=== PATIENT | female | born 1990 | race Two or more races ===

== ENCOUNTER 2025-06-02 19:50 | Inpatient (IN) | payer MEDICAID, OTHER ==
[~2025-06-02] VITALS: Ht 162.6 cm; Wt 60.7 kg
[2025-06-02] MEDS ORDERED: DEXTROSE 50% SYRINGE 100 ML IV ONE (19:54)
[2025-06-02] MEDS ORDERED: ETOMIDATE (2MG/ML) 20ML VIAL IV ONE (19:56)
[2025-06-02] MEDS ORDERED: ROCURONIUM 10MG/ML 10ML VIAL IV ONE (19:56)
[2025-06-02] MEDS: DEXTROSE (50%) 50ML SYRG IV ONE (19:57)
[2025-06-02] MEDS: ETOMIDATE (2MG/ML) 20ML VIAL IV ONE (19:58)
[2025-06-02] MEDS: ROCURONIUM 10MG/ML 10ML VIAL IV ONE (19:59)
--- NOTE | 2025-06-02 20:09 | ED.PDOC ---
History of Present Illness HPI Comments 34 y/o F is BIBA from private residence for c/c AMS. Per EMS report, family called after finding patient in unconsciousness and unresponsive altered state, this evening. Last seen normal by father after arriving home at around 0100, this morning. 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 On scene, patient was found with a respiration rate of 4, tachycardic heart rate, and pin point pupils, initially. Administration of 4mg Narcan IN was performed, with positive response. EMS notes successful blood glucose reading of 21, with D10 administration being initiated, minutes prior to hospital arrival. No further pertinent history or acute associated symptoms reported. 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: Denies all CONSTRUCTION PROJECT COORDINATOR Hx Family History Family History: Unknown Social History Smoker: Non-Smoker Alcohol: Occasionally Drugs: Other (Wax) Lives In: Home All Other Systems: Reviewed and Negative (Comprehensive systems review obtained and negative except for what is stated in the HPI.) Physical Exam General Appearance: Normal, Other (patient unresponsive ) HEENT: Other (Pinpoint pupils) Neck: Normal Inspection Respiratory: Respiratory Distress Cardiovascular: Tachycardia, Other (regular rhythm ) Breast Exam: Deferred Gastrointestinal: NOT DONE Genitalia: Deferred Pelvic: Deferred Rectal: Deferred Extremities: No calf tenderness, Normal capillary refill, Normal inspection, No pedal edema Musculoskeletal : Apperance: Normal Neurologic: Other (patient unresponsive ) Cerebellar Function: NOT DONE Reflexes: NOT DONE Skin: Dry, Normal Color, Warm Lymphatic: No Adenopathy Was a procedure done? 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 Indication: Hypotension, Inability to obtain IV Room prepared for procedure: Yes Nuclear Engineering Technician performed hand hygien: Yes Maximal sterile barrier precau: Mask/Eye shield, Sterile gown, Cap, Sterlie gloves, Large sterlie drape Skin Preparation: Chlorhexidine gluconate, Providine iodine Skin preparation completely dr: Yes Insertion site: Right Central line catheter type: Rov-uwepgkyc-ywe dialysis Number of lumens: 3 Central line exchanged over a: No Antiseptic ointment applied to: No Post Assessment: Chest X-Ray, Proper placement Informed consent obtained: No Risks/benefits/alt described: No Intubation Indication: Respiratory Insufficiency, Altered Mental Status Prep: No Preoxygenation Pretreated with: Nothing Medicated with: Other (100mg Rocuronium bromide; 40mg etomidate) Intubation Approach: Orotracheal (7.5) Intubation size: cm (23 at the lip) Informed consent obtained: No Risks/benefits/alt described: No Differential Dx Considerations may include: substance abuse/dependency, toxic metabolic encephalopathy, opioid overdose, respiratory distress, respiratory failure, among others X-Ray, Labs, Meds, VS Vital Signs Date Time Temp Pulse Resp B/P (MAP) Pulse Ox O2 Delivery O2 Flow Rate FiO2 06/03/25 04:30 99/42 06/03/25 04:04 128 26 104/51 (68) 97 80 06/03/25 03:45 95/40 06/03/25 03:40 97/36 06/03/25 03:30 95/40 06/03/25 03:25 89/38 06/03/25 03:20 90/36 06/03/25 03:15 98/32 06/03/25 03:10 88/38 06/03/25 03:05 81/36 06/03/25 03:00 99.0 125 24 88/46 (60) 97 99.0 06/03/25 03:00 88/46 06/03/25 02:55 67/47 06/03/25 02:50 84/46 06/03/25 02:45 86/39 06/03/25 02:40 84/40 06/03/25 02:40 84/40 06/03/25 02:36 128 26 82/32 (49) 97 80 06/03/25 02:34 84/40 06/03/25 02:15 99.1 129 28 82/31 (48) 96 99.1 06/03/25 02:15 82/31 06/03/25 02:10 82/31 06/03/25 02:00 91/36 06/03/25 02:00 91/36 06/03/25 02:00 99.3 130 28 91/36 (54) 97 99.3 06/03/25 01:45 99.3 130 27 81/35 (50) 96 99.3 06/03/25 01:30 99.5 132 25 82/33 (49) 95 99.5 06/03/25 01:15 99.9 132 25 82/33 (49) 95 99.9 06/03/25 01:00 100.2 137 24 81/36 (51) 94 100.2 06/03/25 01:00 81/36 06/03/25 01:00 81/36 06/03/25 00:45 77/35 06/03/25 00:45 99.9 133 24 77/35 (49) 94 99.9 06/03/25 00:30 99.5 134 24 86/37 (53) 94 99.5 06/03/25 00:30 87/38 06/03/25 00:15 99.0 134 24 86/37 (53) 94 99.0 06/03/25 00:00 87/30 06/03/25 00:00 87/30 06/03/25 00:00 98.4 133 24 87/30 (49) 98 98.4 06/02/25 23:58 128 24 111/30 (57) 100 80 06/02/25 23:45 97.3 129 24 102/34 (56) 99 97.3 06/02/25 23:30 97.3 127 24 84/29 (47) 99 97.3 06/02/25 23:15 96.8 131 24 95/37 (56) 99 96.8 06/02/25 23:00 105/43 06/02/25 23:00 105/43 06/02/25 23:00 95.7 126 24 105/43 (63) 99 95.7 06/02/25 22:45 95.7 120 24 99/29 (52) 99 95.7 06/02/25 22:37 117 20 92/36 (54) 99 100 06/02/25 22:34 117 24 92/36 99 100 06/02/25 22:30 95.3 117 24 91/30 (50) 99 95.3 06/02/25 22:30 84/29 06/02/25 22:15 131 18 Mechanical Ventilator+ 100 100 06/02/25 22:15 94.8 117 24 92/36 (54) 99 94.8 06/02/25 22:00 94.5 115 22 98/2 (34) 98 94.5 06/02/25 22:00 98/20 06/02/25 22:00 98/20 06/02/25 21:55 87/29 06/02/25 21:50 96/27 06/02/25 21:45 94.3 115 24 88/30 (49) 98 94.3 06/02/25 21:45 88/30 06/02/25 21:40 88/27 06/02/25 21:35 97/41 06/02/25 21:30 94.1 115 24 96/30 (52) 99 94.1 06/02/25 21:05 94.1 112 18 96/30 (52) 98 94.1 06/02/25 20:50 94.3 114 18 94/36 (55) 93 94.3 06/02/25 20:40 82/53 06/02/25 20:35 94.6 114 17 92/58 (69) 100 94.6 06/02/25 20:20 115 17 92/58 (69) 95 06/02/25 20:20 94.5 117 4 75/39 (51) 94.5 06/02/25 20:15 87/40 06/02/25 20:12 115 16 87/40 (56) 98 100 06/02/25 20:10 114 16 Mechanical Ventilator+ 100 100 06/02/25 20:10 94.5 114 16 75/39 (51) 94.5 06/02/25 19:59 0/0 Lab Test 06/03/25 04:39 06/03/25 02:52 06/03/25 01:45 06/03/25 01:07 Range/Units POC Glucose 106 112 H 184 H 70-106 mg/dl Blood Gas Specimen Type Venous Blood Gas Sample Site Vbg - n/a Blood Gas Patient Temperature 37.0 Arterial Blood Date Drawn [id number] Dougie Test N/a Venous Blood pH 7.208 L 7.320-7.430 Venous Blood pCO2 at Patient Temp 47.6 38.0-54.0 mmHg Venous Blood pO2 at Patient Temp 48.9 H 23.0-48.0 mmHg Venous Blood HCO3 18.5 L 22.0-29.0 mmol/L Venous Blood Base Excess -9.4 L -2.0-3.0 mmol/L Blood Gas Set Respiration Rate 24.0 Blood Gas Modality Vent - ac FiO2 % 80.0 Blood Gas Tidal Volume 400.0 Blood Gas PEEP or CPAP 5.0 Test 06/03/25 00:30 06/02/25 22:39 06/02/25 22:37 06/02/25 22:22 Range/Units Creatine Kinase > 67326 H 34-145 U/L Troponin I High Sensitivity 4005 *H 2967 *H </=34 ng/L White Blood Count 14.2 H 4.4-10.8 10^3/uL Red Blood Count 3.72 L 4.0-5.20 10^6/uL Hemoglobin 11.3 L 12.2-16.2 g/dL Hematocrit 36.6 36.0-46.0 % Mean Corpuscular Volume 98.4 # 80.0-100.0 fL Mean Corpuscular Hemoglobin 30.5 28.0-32.0 pg Mean Corpuscular Hemoglobin Concent 31.0 L 32.0-36.0 g/dL Red Cell Distribution Width 19.7 H 11.8-14.3 % Platelet Count 296 140-450 10^3/uL Mean Platelet Volume 7.9 6.9-10.8 fL Neutrophils (%) (Auto) 91.8 H 37.0-80.0 % Lymphocytes (%) (Auto) 6.5 L 10.0-50.0 % Monocytes (%) (Auto) 1.4 0.0-12.0 % Eosinophils (%) (Auto) 0.0 0.0-7.0 % Basophils (%) (Auto) 0.3 0.0-2.0 % Neutrophils # (Auto) 13.1 H 1.6-8.6 10 ^3/uL Lymphocytes # (Auto) 0.9 0.4-5.4 10 ^3/uL Monocytes # (Auto) 0.2 0-1.3 10 ^3/uL Eosinophils # (Auto) 0 0-0.8 10 ^3/uL Basophils # (Auto) 0 0-0.2 10 ^3/uL Nucleated Red Blood Cells 0.1 % Sodium Level 139 136-145 mmol/L Potassium Level 7.6 *H 3.5-5.1 mmol/L Chloride Level 106 98-107 mmol/L Carbon Dioxide Level 12 L 20-31 mmol/L Anion Gap 21 H 5-15 Blood Urea Nitrogen 19 9-23 mg/dL Creatinine 2.87 H 0.550-1.02 mg/dL Glomerular Filtration Rate Calc 21 >90 mL/min BUN/Creatinine Ratio 6.6 L 10.0-20.0 Serum Glucose 207 H 74-106 mg/dL Calcium Level 6.0 *L 8.7-10.4 mg/dL Phosphorus Level 21.1 H 2.4-5.1 mg/dL Magnesium Level 2.9 H 1.6-2.6 mg/dL Total Bilirubin 0.6 0.2-1.0 mg/dL Aspartate Amino Transferase (AST) > 6000 H 13-40 U/L Alanine Aminotransferase (ALT) 4005 H 7-40 U/L Alkaline Phosphatase 110 46-116 U/L Total Protein 6.6 5.7-8.2 g/dL Albumin 3.9 3.2-4.8 g/dL Plasma/Serum Blood Alcohol 3.0 <10 mg/dL Lactic Acid Level 9.1 *H 0.4-2.0 mmol/L Test 06/02/25 22:20 06/02/25 20:23 06/02/25 20:12 Range/Units Blood Gas Specimen Type Venous Blood Gas Sample Site Vbg - n/a Blood Gas Patient Temperature 37.0 Arterial Blood Date Drawn [id number] Dougie Test N/a Venous Blood pH 6.893 *L 7.320-7.430 Venous Blood pCO2 at Patient Temp 42.4 38.0-54.0 mmHg Venous Blood pO2 at Patient Temp 78.0 H 23.0-48.0 mmHg Venous Blood HCO3 8.0 L 22.0-29.0 mmol/L Venous Blood Base Excess -25.0 L -2.0-3.0 mmol/L Blood Gas Set Respiration Rate 24.0 Blood Gas Modality Vent - ac FiO2 % 100.0 Blood Gas Tidal Volume 400.0 Blood Gas PEEP or CPAP 5.0 Blood Gas Critical Value Read Back Yes Blood Gas Notified Whom Md dick rios Blood Gas Notified Time [id number] Blood Gas Notified By Rt jarvis zabala Urine Color Colorless Yellow Urine Clarity Clear Clear Urine pH 6.0 5.0-9.0 Urine Specific [place] 1.002 1.001-1.035 Urine Protein Negative Negative Urine Ketones Negative Negative Urine Blood Negative Negative /uL Urine Nitrite Negative Negative Urine Bilirubin Negative Negative Urine Urobilinogen Normal Negative mg/dL Urine Leukocyte Esterase Negative Negative /uL Urine RBC 1 0 - 4 /hpf Urine Microscopic WBC 0-5 /HPF Urine Squamous Epithelial Cells Few <5 /hpf Urine Bacteria Few H None Seen /hpf Urine Glucose Normal Normal mg/dL Urine Test Negative Negative Urine Opiates Screen Neg NEGATIVE Urine Fentanyl Screen Pos NEGATIVE Urine Barbiturates Screen Neg NEGATIVE Urine Phencyclidine Screen Neg NEGATIVE Urine Amphetamines Screen Neg NEGATIVE Urine Benzodiazepines Screen Neg NEGATIVE Urine Cocaine Screen Neg NEGATIVE Urine Cannabinoids Screen Pos NEGATIVE White Blood Count 16.3 H 4.4-10.8 10^3/uL Red Blood Count 3.61 L 4.0-5.20 10^6/uL Hemoglobin 10.6 L 12.2-16.2 g/dL Hematocrit 37.3 36.0-46.0 % Mean Corpuscular Volume 103.4 H 80.0-100.0 fL Mean Corpuscular Hemoglobin 29.3 28.0-32.0 pg Mean Corpuscular Hemoglobin Concent 28.4 L 32.0-36.0 g/dL Red Cell Distribution Width 20.3 H 11.8-14.3 % Platelet Count 324 140-450 10^3/uL Mean Platelet Volume 8.2 6.9-10.8 fL Neutrophils (%) (Auto) 89.3 H 37.0-80.0 % Lymphocytes (%) (Auto) 8.6 L 10.0-50.0 % Monocytes (%) (Auto) 1.9 0.0-12.0 % Eosinophils (%) (Auto) 0.1 0.0-7.0 % Basophils (%) (Auto) 0.1 0.0-2.0 % Neutrophils # (Auto) 14.6 H 1.6-8.6 10 ^3/uL Lymphocytes # (Auto) 1.4 0.4-5.4 10 ^3/uL Monocytes # (Auto) 0.3 0-1.3 10 ^3/uL Eosinophils # (Auto) 0 0-0.8 10 ^3/uL Basophils # (Auto) 0 0-0.2 10 ^3/uL Nucleated Red Blood Cells 0.2 % Sodium Level 135 L 136-145 mmol/L Potassium Level 7.5 *H 3.5-5.1 mmol/L Chloride Level 98 98-107 mmol/L Carbon Dioxide Level < 10 *L 20-31 mmol/L Anion Gap 27.89295 H 5-15 Blood Urea Nitrogen 18 9-23 mg/dL Creatinine 2.92 H 0.550-1.02 mg/dL Glomerular Filtration Rate Calc 21 >90 mL/min BUN/Creatinine Ratio 6.2 L 10.0-20.0 Serum Glucose 428 *H 74-106 mg/dL Lactic Acid Level 11.0 *H 0.4-2.0 mmol/L Calcium Level 6.2 L 8.7-10.4 mg/dL Total Bilirubin 0.5 0.2-1.0 mg/dL Aspartate Amino Transferase (AST) > 6000 H 13-40 U/L Alanine Aminotransferase (ALT) 3570 H 7-40 U/L Alkaline Phosphatase 105 46-116 U/L Troponin I High Sensitivity 2381 *H </=34 ng/L B-Type Natriuretic Peptide 95.14 0-100 pg/mL Total Protein 6.4 5.7-8.2 g/dL Albumin 3.9 3.2-4.8 g/dL Lipase 29 12-53 U/L Current Medications Medications (Trade) Dose Ordered Sig/[facility] Route Start Time Stop Time Status Last Admin Sodium Chloride 1,000 ml @ 1,000 mls/hr Q1H ONCE IV 06/02/25 20:15 06/02/25 21:14 DC 06/02/25 20:15 Ceftriaxone Sodium 50 ml @ 100 mls/hr ONCE ONCE IV 06/02/25 20:15 06/02/25 20:44 DC 06/02/25 20:58 Rocuronium Dieterich 100 mg ONCE ONCE IV 06/02/25 21:00 06/02/25 21:01 DC 06/02/25 19:59 Etomidate 20 mg ONCE ONCE IV 06/02/25 21:00 06/02/25 21:01 [place] 06/02/25 19:58 Midazolam HCl 50 ml @ 1 mls/hr Q24H IV 06/02/25 21:00 06/02/25 21:35 Dextrose 100 ml ONCE ONCE IV 06/02/25 21:00 06/02/25 21:03 DC 06/02/25 19:57 Norepinephrine Bitartrate 250 ml @ 3.75 mls/hr Q24H IV 06/02/25 21:15 06/02/25 20:15 Sodium Chloride 1,000 ml @ 1,000 mls/hr Q1H ONCE IV 06/02/25 21:30 06/02/25 22:29 DC 06/02/25 21:30 Calcium Gluconate/ Sodium Chloride 50 ml @ 100 mls/hr Q30M IV 06/02/25 22:30 06/02/25 23:29 DC 06/02/25 23:00 Sodium Bicarbonate 100 ml ONCE ONCE IV 06/02/25 22:30 06/02/25 22:36 DC 06/02/25 22:30 Sodium Chloride 1,000 ml @ 1,000 mls/hr Q1H ONCE IV 06/02/25 22:30 06/02/25 23:29 DC 06/02/25 22:30 Vancomycin HCl 200 ml @ 200 mls/hr ONCE ONCE IV 06/02/25 22:30 06/02/25 23:29 DC 06/02/25 22:30 Calcium Gluconate/ Sodium Chloride 50 ml @ 100 mls/hr Q30M IV 06/02/25 23:45 06/03/25 00:44 DC 06/03/25 00:15 Sodium Bicarbonate 100 ml ONCE ONCE IV 06/02/25 23:45 06/02/25 23:46 DC 06/02/25 23:45 Sodium Chloride 1,000 ml @ 1,000 mls/hr Q1H ONCE IV 06/02/25 23:45 06/03/25 00:44 DC 06/02/25 23:45 Sodium Chloride 1,000 ml @ 500 mls/hr Q2H IV 06/03/25 00:00 06/03/25 03:59 DC 06/03/25 02:00 Sodium Chloride 1,000 ml @ 250 mls/hr Q4H IV 06/03/25 04:00 06/03/25 05:59 06/03/25 04:16 Insulin Human (Reg)/Sodium Chloride 100 ml @ 0.5 mls/hr Q24H IV 06/03/25 00:00 06/03/25 01:20 Diagnostic Test (Pha) (Accu-Chek Comfort Curve T) 1 strip Q90MIN 06/03/25 00:00 06/03/25 04:40 Insulin Glargine (Lantus) 15 units ONCE ONCE SC 06/03/25 00:00 06/03/25 00:01 DC 06/03/25 00:00 Vasopressin 20 units/Sodium Chloride 100 ml @ 9 mls/hr Q11H7M IV 06/03/25 02:10 06/03/25 02:10 Dobutamine HCl/ Dextrose 250 ml @ 15.6 mls/hr Q16H2M ONCE IV 06/03/25 02:30 06/03/25 18:31 06/03/25 02:34 Sodium Chloride 1,000 ml @ 1,000 mls/hr Q1H ONCE IV 06/03/25 02:10 06/03/25 04:16 DC 06/03/25 02:10 [place] [address] Ph: [phone] DIAGNOSTIC IMAGING Diagnostic Imaging Report : [id number] Signed PATIENT: GERARDO SON ACCT: [id number] UNIT: [id number] : 1990 LOC: ER ROOM / BED: / AGE / SEX: 34 / F ADM STATUS: REG ER SERVICE 13 ORDERING PHYSICIAN: GIOVANNI RIOS MD PROCEDURE(s): HWOCT - HEAD WITHOUT CONTRAST REASON: found down ORDER NUMBER(s): [id number], ACCESSION NUMBER(s): [id number] EXAM: CT HEAD WITHOUT CONTRAST INDICATION: found down TECHNIQUE: CT of the head without intravenous contrast. Radiation Dose : 1. Head: CT Dose: CTDI volume is 47.5 mGy. Dose-length product is 83.31 mGy*cm The dose indicators for CT are the volume Computed Tomography (CT) Dose Index (CTDIvol) and the Dose Length Product (DLP), and are measured in units of mGy and mGy-cm, respectively. These indicators are not patient dose, but values generated from the CT scanner acquisition factors. The report includes radiation exposure data for exposures received during this examination. COMPARISON: None FINDINGS: There is no evidence of acute intracranial hemorrhage, extra-axial collection, mass effect, midline shift, herniation or hydrocephalus. The ventricles, sulci and cisterns are age appropriate. The rod-white differentiation is intact. The visualized paranasal sinuses and mastoid air cells are clear. The surrounding soft tissues and osseous structures are unremarkable. Nasogastric tube. IMPRESSION: 1. No acute intracranial abnormality. Radiation optimization: All CT scans at this facility use at least one of these dose optimization techniques: automated exposure control mA and/or kV adjustment per patient size (includes targeted exams where dose is matched to clinical indication) or iterative reconstruction. ATED BY: TAPAN BIRMINGHAM MD DICTATED DATE/TIME: 06/02/252149 SIGNED BY: TAPAN BIRMINGHAM MD SIGNED DATE/TIME: 06/02/252149 CC: [place] [address] Ph: [phone] DIAGNOSTIC IMAGING Diagnostic Imaging Report : [id number] Signed PATIENT: GERARDO SON ACCT: [id number] UNIT: [id number] : 1990 LOC: ER ROOM / BED: / AGE / SEX: 34 / F ADM STATUS: REG ER SERVICE 13 ORDERING PHYSICIAN: GIOVANNI RIOS MD PROCEDURE(s): CXRP - CHEST PORTABLE REASON: found down, intubated ORDER NUMBER(s): [id number], ACCESSION NUMBER(s): [id number] CHEST RADIOGRAPH Indication: found down, intubated Technique: Single frontal view of the chest was obtained COMPARISON: None FINDINGS: Lines and Tubes: Endotracheal tube terminates 3.1 cm above the ramu. Enteric tube courses past the GE junction with the tip and side port overlying the plane of the stomach. Lungs: Possible small/ nodular opacity in the left mid lung. Lungs are otherwise grossly clear. Pleura: No effusion. No pneumothorax. Cardiomediastinal contours: Unremarkable Bones: Unremarkable Other: The partially visualized gastric bubble is distended with gas. IMPRESSION: Endotracheal and enteric tubes are in satisfactory position. Question a small/nodular opacity in the left midlung. Lungs are otherwise grossly clear. No pneumothorax. Partially visualized gaseous distention of the stomach. ATED BY: WAQAS LYMAN DO DICTATED DATE/TIME: 06/02/252123 SIGNED BY: WAQAS LYMAN DO SIGNED DATE/TIME: 06/02/252123 CC: X-Ray, Labs, Meds, VS Comment Time of 1ST Reevaluation: 20:20 Reevaluation 1ST: Unchanged Patient Education/Counseling: Treatment Family Education/Counseling: No Family Present Additional Information Previous visits reviewed: April 27, 2012 and May 11, 2019 encounters for back pain and laceration of right wrist, respectively The following tests were ordered, and results were reviewed by me: CXR, head CT w.o contrast, EKG, troponin, drug screen, UA, urine test, lipase, lactic acid w/reflex, CMP, CBC, BNP, urine bacterial culture, blood culture, respiratory culture Additional Information was gathered from interviewing the following independent historians: EMS I reviewed and agreed with the following test results read by other providers: CXR, head CT w.o contrast I discussed treatment and results with medical personnel and: patient SEPSIS Sepsis Screen Physician Orders Ventilator Orders (06/02/25 20:07) Respiratory Culture W/ Gs (06/02/25 20:07) Abg W/ Co-Ox (06/02/25 21:00) Chest Portable (06/02/25 20:14) Head Without Contrast (06/02/25 20:14) Electrocardigram (06/02/25 20:14) Blood Culture (06/02/25 20:14) Urine Bacterial Culture (06/02/25 20:14) Insert Alves Catheter QSHIFT (06/02/25 20:14) Ventilator Orders (06/02/25 20:51) Midazolam Drip 50 Mg/50ml (Versed Drip 5 (06/02/25 21:00) Fentanyl Drip 2500mcg/250mlns (06/02/25 21:00) Rass Sedation Scale Q1HR (06/02/25 21:00) Communication Order (06/02/25 21:02) Norepinephrine 8 Mg/250ml Kit (Levophed) (06/02/25 21:15) Ventilator Orders (06/02/25 21:11) Communication Order (06/02/25 20:35) Venous Blood Gas (06/02/25 22:30) Insulin Drip Protocol (06/02/25 ) Sodium Chloride 0.9% (06/03/25 04:00) Sodium Chloride 0.9% (06/03/25 06:00) Insulin Drip 100 Unit/100ml (Myxredlin 1 (06/03/25 00:00) Dextrose 50% Syringe (06/03/25 00:00) Glucose Blood (Accu-Chek Comfort Curve T (06/03/25 00:00) Basic Metabolic Panel (06/03/25 05:52) Basic Metabolic Panel (06/03/25 11:52) Basic Metabolic Panel (06/03/25 17:52) Neurological Assessment (06/02/25 23:52) Vs/Hemodynamics .PER UNIT PROTOCOL (06/02/25 23:52) Insulin Lantus (Glargine) (Lantus) (06/03/25 10:00) Check Blood Glucose Q1HR (06/02/25 23:52) Sodium Chl 0.9% (So... W/Vasopressin (06/03/25 02:10) Venous Blood Gas (06/03/25 01:45) Ventilator Orders (06/03/25 02:26) Dobutamine 1000mcg/Ml (Dobutrex) (06/03/25 02:30) Cvp Monitoring (06/03/25 ) Magnesium (06/03/25 04:55) Phosphorus (06/03/25 04:55) Basic Metabolic Panel (06/03/25 04:55) Complete Blood Count (06/03/25 04:55) Lactic Acid W/ Reflex Order (06/03/25 04:55) Vital Signs Date Time Temp Pulse Resp B/P (MAP) Pulse Ox O2 Delivery O2 Flow Rate FiO2 06/03/25 04:30 99/42 06/03/25 04:04 128 26 104/51 (68) 97 80 06/03/25 03:45 95/40 06/03/25 03:40 97/36 06/03/25 03:30 95/40 06/03/25 03:25 89/38 06/03/25 03:20 90/36 06/03/25 03:15 98/32 06/03/25 03:10 88/38 06/03/25 03:05 81/36 06/03/25 03:00 99.0 125 24 88/46 (60) 97 99.0 06/03/25 03:00 88/46 06/03/25 02:55 67/47 06/03/25 02:50 84/46 06/03/25 02:45 86/39 06/03/25 02:40 84/40 06/03/25 02:40 84/40 06/03/25 02:36 128 26 82/32 (49) 97 80 06/03/25 02:34 84/40 06/03/25 02:15 99.1 129 28 82/31 (48) 96 99.1 06/03/25 02:15 82/31 06/03/25 02:10 82/31 06/03/25 02:00 91/36 06/03/25 02:00 91/36 06/03/25 02:00 99.3 130 28 91/36 (54) 97 99.3 06/03/25 01:45 99.3 130 27 81/35 (50) 96 99.3 06/03/25 01:30 99.5 132 25 82/33 (49) 95 99.5 06/03/25 01:15 99.9 132 25 82/33 (49) 95 99.9 06/03/25 01:00 100.2 137 24 81/36 (51) 94 100.2 06/03/25 01:00 81/36 06/03/25 01:00 81/36 06/03/25 00:45 77/35 06/03/25 00:45 99.9 133 24 77/35 (49) 94 99.9 06/03/25 00:30 99.5 134 24 86/37 (53) 94 99.5 06/03/25 00:30 87/38 06/03/25 00:15 99.0 134 24 86/37 (53) 94 99.0 06/03/25 00:00 87/30 06/03/25 00:00 87/30 06/03/25 00:00 98.4 133 24 87/30 (49) 98 98.4 7/20/25 23:58 128 24 111/30 (57) 100 80 06/02/25 23:45 97.3 129 24 102/34 (56) 99 97.3 06/02/25 23:30 97.3 127 24 84/29 (47) 99 97.3 06/02/25 23:15 96.8 131 24 95/37 (56) 99 96.8 06/02/25 23:00 105/43 06/02/25 23:00 105/43 06/02/25 23:00 95.7 126 24 105/43 (63) 99 95.7 06/02/25 22:45 95.7 120 24 99/29 (52) 99 95.7 06/02/25 22:37 117 20 92/36 (54) 99 100 06/02/25 22:34 117 24 92/36 99 100 06/02/25 22:30 95.3 117 24 91/30 (50) 99 95.3 06/02/25 22:30 84/29 06/02/25 22:15 131 18 Mechanical Ventilator+ 100 100 06/02/25 22:15 94.8 117 24 92/36 (54) 99 94.8 06/02/25 22:00 94.5 115 22 98/2 (34) 98 94.5 06/02/25 22:00 98/20 06/02/25 22:00 98/20 06/02/25 21:55 87/29 06/02/25 21:50 96/27 06/02/25 21:45 94.3 115 24 88/30 (49) 98 94.3 06/02/25 21:45 88/30 06/02/25 21:40 88/27 06/02/25 21:35 97/41 06/02/25 21:30 94.1 115 24 96/30 (52) 99 94.1 06/02/25 21:05 94.1 112 18 96/30 (52) 98 94.1 06/02/25 20:50 94.3 114 18 94/36 (55) 93 94.3 06/02/25 20:40 82/53 72025 20:35 94.6 114 17 92/58 (69) 100 94.6 06/02/25 20:20 115 17 92/58 (69) 95 7/20/ 20:20 94.5 117 4 75/39 (51) 94.5 06/02/25 20:15 87/40 06/02/25 20:12 115 16 87/40 (56) 98 100 06/02/25 20:10 114 16 Mechanical Ventilator+ 100 100 06/02/25 20:10 94.5 114 16 75/39 (51) 94.5 06/02/25 19:59 0/0 Laboratory Tests Test 06/02/25 20:12 06/02/25 22:22 06/02/25 22:39 Lactic Acid Level 11.0 mmol/L (0.4-2.0) *H 9.1 mmol/L (0.4-2.0) *H White Blood Count 16.3 10^3/uL (4.4-10.8) H 14.2 10^3/uL (4.4-10.8) H Medications Medications Dose Ordered Sig/Renny Route Start Time Stop Time Status Last Admin Dose Admin Calcium Gluconate/ Sodium Chloride 50 ml @ 100 mls/hr Q30M IV 06/02/25 22:30 06/02/25 23:29 DC 06/02/25 23:00 Calcium Gluconate/ Sodium Chloride 50 ml @ 100 mls/hr Q30M IV 06/02/25 23:45 06/03/25 00:44 DC 06/03/25 00:15 Ceftriaxone Sodium 50 ml @ 100 mls/hr ONCE ONCE IV 06/02/25 20:15 06/02/25 20:44 DC 06/02/25 20:58 Dextrose 100 ml ONCE ONCE IV 06/02/25 21:00 06/02/25 21:03 DC 06/02/25 19:57 Diagnostic Test (Pha) 1 strip Q90MIN 06/03/25 00:00 06/03/25 04:40 Dobutamine HCl/ Dextrose 250 ml @ 15.6 mls/hr Q16H2M ONCE IV 06/03/25 02:30 06/03/25 18:31 06/03/25 02:34 Etomidate 20 mg ONCE ONCE IV 06/02/25 21:00 06/02/25 21:01 DC 06/02/25 19:58 Insulin Glargine 15 units ONCE ONCE SC 06/03/25 00:00 06/03/25 00:01 DC 06/03/25 00:00 Insulin Human (Reg)/Sodium Chloride 100 ml @ 0.5 mls/hr Q24H IV 06/03/25 00:00 06/03/25 01:20 Midazolam HCl 50 ml @ 1 mls/hr Q24H IV 06/02/25 21:00 06/02/25 21:35 Norepinephrine Bitartrate 250 ml @ 3.75 mls/hr Q24H IV 06/02/25 21:15 06/02/25 20:15 Rocuronium Dieterich 100 mg ONCE ONCE IV 06/02/25 21:00 06/02/25 21:01 DC 06/02/25 19:59 Sodium Bicarbonate 100 ml ONCE ONCE IV 06/02/25 22:30 06/02/25 22:36 DC 06/02/25 22:30 Sodium Bicarbonate 100 ml ONCE ONCE IV 06/02/25 23:45 06/02/25 23:46 DC 06/02/25 23:45 Sodium Chloride 1,000 ml @ 250 mls/hr Q4H IV 06/03/25 04:00 06/03/25 05:59 06/03/25 04:16 Sodium Chloride 1,000 ml @ 500 mls/hr Q2H IV 06/03/25 00:00 06/03/25 03:59 DC 06/03/25 02:00 Sodium Chloride 1,000 ml @ 1,000 mls/hr Q1H ONCE IV 06/02/25 20:15 06/02/25 21:14 DC 06/02/25 20:15 Sodium Chloride 1,000 ml @ 1,000 mls/hr Q1H ONCE IV 06/02/25 21:30 06/02/25 22:29 DC 06/02/25 21:30 Sodium Chloride 1,000 ml @ 1,000 mls/hr Q1H ONCE IV 06/02/25 22:30 06/02/25 23:29 DC 06/02/25 22:30 Sodium Chloride 1,000 ml @ 1,000 mls/hr Q1H ONCE IV 06/02/25 23:45 06/03/25 00:44 DC 06/02/25 23:45 Sodium Chloride 1,000 ml @ 1,000 mls/hr Q1H ONCE IV 06/03/25 02:10 06/03/25 04:16 DC 06/03/25 02:10 Vancomycin HCl 200 ml @ 200 mls/hr ONCE ONCE IV 06/02/25 22:30 06/02/25 23:29 DC 06/02/25 22:30 Vasopressin 20 units/Sodium Chloride 100 ml @ 9 mls/hr Q11H7M IV 06/03/25 02:10 06/03/25 02:10 Departure 1 Departure Time of Disposition: 04:58 ([place] Authorization to Admit to [facility] [id number] presented unresponsive as discussion with the family patient is post CPR. Patient likely had an we will we are going to failure. Patient was intubated central line paste home with we will pressors. Patient lives shock liver renal failure. We will admit patient to ICU) Impression: Primary Impression: MOSF (multiple organ systems failure) Additional Impressions: Acute metabolic encephalopathy Hyperkalemia Metabolic acidosis Fentanyl poisoning Qualified Codes: T40.411A - Poisoning by fentanyl or fentanyl analogs, accidental (unintentional), initial encounter Disposition: ADMITTED INPATIENT Admit to: ICU Condition: Critical e-Prescriptions No Active Prescriptions or Reported Meds Critical Care Note Critical Care Time?: Yes Critical care comment: Acute multi organ system failure Authorized and Performed by: Giovanni Rios MD Total critical care time: Approximately 241 minutes Due to a high probability of clinically significant, life threatening deterioration, the patient required my highest level of preparedness to intervene emergently and I personally spent this critical care time directly and personally managing the patient. This critical care time included obtaining a history; examining the patient; pulse oximetry; ordering and review of studies; arranging urgent treatment with development of a management plan; evaluation of patient's response to treatment; frequent reassessment; and, discussions with other providers. This critical care time was performed to assess and manage the high probability of imminent, life-threatening deterioration that could result in multi-organ failure. It was exclusive of separately billable procedures and treating other patients and teaching time. Please see my other sections and the rest of the note for further information on patient assessment and treatment. Stability Stability form required: No Heart Score Heart Score: Heart Score Response (Comments) Value History N/A 0 EKG N/A 0 Age N/A 0 Risk Factors N/A 0 Troponin N/A 0 Total 0 I personally scribed for GIOVANNI RIOS MD ([email or web address]) on 06/02/25 at 20:09. Electronically submitted by Talon Velarde ([email or web address]). I personally scribed for [facility]NI [facility] MD ([facility] on 06/02/25 at 20:17. Electronically submitted by Talon Velarde ([email or web address]). I personally scribed for GIOVANNI RIOS MD ([email or web address]) on 06/02/25 at 22:32. Electronically submitted by Talon Velarde ([email or web address]). GIOVANNI RIOS MD Jun 02, 2025 20:09
[2025-06-02 20:10] VITALS: PULSE 114; RESP 16
[2025-06-02] MEDS: NOREPINEPHRINE 8 MG/250ML KIT 250 ML IV ONE (20:12)
[2025-06-02] MEDS: NOREPINEPHRINE 8 MG/250ML KIT 250 ML IV SCH (20:15)
[2025-06-02] MEDS: ONDANSETRON HCL 4 MG/2 ML VIAL IV ONE (20:15)
[2025-06-02] MEDS: SODIUM CHLORIDE 0.9% 1,000 ML IV ONE ×4 (20:15→23:45)
[2025-06-02 20:34] LABS: Hemoglobin 10.6 g/dL (12.2-16.2)
[2025-06-02] MEDS: MIDAZOLAM DRIP 50 mg/50mL 50 ML IV ONE (20:34)
[2025-06-02 20:35] LABS: Hematocrit 37.3 % (36.0-46.0); Mean Corpuscular Hemoglobin 29.3 pg (28.0-32.0); Mean Corpuscular Volume 103.4 fL (80.0-100.0); Nucleated Red Blood Cells % 0.2 %
[2025-06-02 20:37] LABS: Urine Protein, UAD Negative (Negative)
[2025-06-02] MEDS: fentaNYL Drip 2500mCg/250mlNS 250 ML IV ONE (20:37)
[2025-06-02 20:50] LABS: Amphetamine Screen, Urine Neg (NEGATIVE); Barbiturate Scree,Urine Neg (NEGATIVE); Benzodiazephine Screen, Urine Neg (NEGATIVE); Cannabinoid Screen, Urine Pos (NEGATIVE); Cocaine Screen, Urine Neg (NEGATIVE); Opiate Scree,Urine Neg (NEGATIVE); Phencyclidine Screen, Urine Neg (NEGATIVE)
[2025-06-02 20:53] LABS: Lactic Acid w/Reflex 11.0 mmol/L (0.4-2.0)
[2025-06-02] MEDS: cefTRIAXone 1GM/50ML D5W 50 ML IV ONE (20:58)
[2025-06-02] MEDS: fentaNYL Drip 2500mCg/250mlNS 250 ML IV SCH (21:00)
[2025-06-02 21:04] LABS: Alanine Aminotransferase 3570 U/L (7-40)
[2025-06-02 21:05] LABS: Potassium 7.5 mmol/L (3.5-5.1); Sodium 135 mmol/L (136-145)
[2025-06-02 21:06] LABS: Albumin 3.9 g/dL (3.2-4.8); Alkaline Phosphatase 105 U/L (46-116); Anion Gap 27.00001 (5-15); BUN/Creatinine Ratio 6.2 (10.0-20.0); Bilirubin, Total 0.5 mg/dL (0.2-1.0); Blood Urea Nitrogen 18 mg/dL (9-23); Calcium 6.2 mg/dL (8.7-10.4); Carbon Dioxide < 10 mmol/L (20-31); Chloride 98 mmol/L (98-107); Glucose 428 mg/dL (74-106); Lipase 29 U/L (12-53); Total Protein 6.4 g/dL (5.7-8.2)
--- NOTE | 2025-06-02 21:27 | DVH ---
CHEST RADIOGRAPH Indication: found down, intubated Technique: Single frontal view of the chest was obtained COMPARISON: None FINDINGS: Lines and Tubes: Endotracheal tube terminates 3.1 cm above the ramu. Enteric tube courses past the GE junction with the tip and side port overlying the plane of the stomach. Lungs: Possible small/ nodular opacity in the left mid lung. Lungs are otherwise grossly clear. Pleura: No effusion. No pneumothorax. Cardiomediastinal contours: Unremarkable Bones: Unremarkable Other: The partially visualized gastric bubble is distended with gas. IMPRESSION: Endotracheal and enteric tubes are in satisfactory position. Question a small/nodular opacity in the left midlung. Lungs are otherwise grossly clear. No pneumoth orax. Partially visualized gaseous distention of the stomach.
[2025-06-02] MEDS: MIDAZOLAM DRIP 50 mg/50mL 50 ML IV SCH (21:35)
--- NOTE | 2025-06-02 21:53 | DVH ---
EXAM: CT HEAD WITHOUT CONTRAST INDICATION: found down TECHNIQUE: CT of the head without intravenous contrast. Radiation Dose : 1. Head: CT Dose: CTDI volume is 47.5 mGy. Dose-length product is 83.31 mGy*cm The dose indicators for CT are the volume Computed Tomography (CT) Dose Index (CTDIvol) and the Dose Length Product (DLP), and are measured in units of mGy and mGy-cm, respectively. These indicators are not patient dose, but values generated from the CT scanner acquisition factors. The report includes radiation exposure data for exposures received during this examination. COMPARISON: None FINDINGS: There is no evidence of acute intracranial hemorrhage, extra-axial collection, mass effect, midline s hift, herniation or hydrocephalus. The ventricles, sulci and cisterns are age appropriate. The rod-white differentiation is intact. The visualized paranasal sinuses and mastoid air cells are clear. The surrounding soft tissues and osseous structures are unremarkable. Nasogastric tube. IMPRESSION: 1. No acute intracranial abnormality. Radiation optimization: All CT scans at this facility use at least one of these dose optimization avelino hniques: automated exposure control mA and/or kV adjustment per patient size (includes targeted exam s where dose is matched to clinical indication) or iterative reconstruction.
[2025-06-02 22:15] VITALS: PULSE 131; RESP 18
[2025-06-02] MEDS: SODIUM BICARB 8.4% 50Meq/50ml SYR Vial IV ONE ×2 (22:30→23:45)
[2025-06-02] MEDS: CALCIUM GLUC 1,000mg/50ml-NS 50 ML IV SCH ×2 (22:30→23:45)
[2025-06-02] MEDS: VANCOMYCIN 1GM/200ML PM 200 ML IV ONE (22:30)
[2025-06-02 22:34] VITALS: BP 92/36; PULSE 117; RESP 24; O2SAT 99
[2025-06-02 22:37] VITALS: BP 92/36; PULSE 117; RESP 20; O2SAT 99
[2025-06-02 22:53] LABS: Mean Corpuscular Volume 98.4 fL (80.0-100.0)
[2025-06-02 22:55] LABS: Hematocrit 36.6 % (36.0-46.0); Hemoglobin 11.3 g/dL (12.2-16.2); Mean Corpuscular Hemoglobin 30.5 pg (28.0-32.0); Nucleated Red Blood Cells % 0.1 %
[2025-06-02 23:02] LABS: Albumin 3.9 g/dL (3.2-4.8); Alkaline Phosphatase 110 U/L (46-116); Anion Gap 21 (5-15); BUN/Creatinine Ratio 6.6 (10.0-20.0); Blood Urea Nitrogen 19 mg/dL (9-23); Chloride 106 mmol/L (98-107); Sodium 139 mmol/L (136-145); Total Protein 6.6 g/dL (5.7-8.2)
[2025-06-02 23:03] LABS: Bilirubin, Total 0.6 mg/dL (0.2-1.0)
[2025-06-02 23:36] LABS: Carbon Dioxide 12 mmol/L (20-31); Potassium 7.6 mmol/L (3.5-5.1)
[2025-06-02 23:37] LABS: Alanine Aminotransferase 4005 U/L (7-40); Calcium 6.0 mg/dL (8.7-10.4); Glucose 207 mg/dL (74-106); Magnesium 2.9 mg/dL (1.6-2.6)
[2025-06-02] MEDS: InsuLIN REG 1unit/0.01ml Soln (100units/ml) IV ONE (23:45)
[2025-06-02 23:58] VITALS: BP 111/30; PULSE 128; RESP 24; O2SAT 100
[2025-06-03] VITALS (92 sets, daily range): BP systolic 80–134; BP diastolic 32–77; PULSE 83–130; RESP 14–26; TEMP 97.3–99.3; O2SAT 91–100
[2025-06-03] MEDS ORDERED: DEXTROSE (50%) 50ML SYRG IV PRN
[2025-06-03] MEDS: INSULIN LANTUS (GLARGINE) 1 /0.01ml (100units/ml) SC ONE
[2025-06-03] MEDS: INSULIN DRIP 100 UNIT/100ML 100 ML IV SCH (01:20)
[2025-06-03] MEDS: VASOPRESSIN 20 UNIT/ML ONE (02:05)
[2025-06-03] MEDS: VASOPRESSIN 20 UNITS in SODIUM CHL 0.9% 99 ML IV SCH (02:10)
[2025-06-03] MEDS: SODIUM CHLORIDE 0.9% 1,000 ML IV ONE ×2 (02:10→05:00)
[2025-06-03] MEDS: DOBUTamine 1000MCG/ML 250 ML IV ONE (02:34)
[2025-06-03] MEDS: SODIUM CHLORIDE 0.9% 1,000 ML IV SCH ×3 (04:16→07:30)
[2025-06-03] MEDS ORDERED: ACETAMINOPHEN 325 MG TAB PO PRN (05:00)
[2025-06-03] MEDS ORDERED: MORPHINE SULFATE INJ 2 MG/ml SYRG IV PRN (05:00)
[2025-06-03] MEDS ORDERED: ONDANSETRON HCL 4 MG/2 ML VIAL IV PRN (05:00)
[2025-06-03] MEDS ORDERED: VANCOMYCIN PER PHARMACY 0 MG IV SCH (05:00)
[2025-06-03] MEDS ORDERED: NITROGLYCERIN 0.4 MG SL TAB SL PRN (05:00)
--- NOTE | 2025-06-03 05:07 | DVHHP2 ---
History of Present Illness Reason for Visit: Altered mental status History of Present Illness 34-year-old female presents for evaluation of altered mental status. Patient was found unconscious and unresponsive by family member. Last seen normal is on when patient was last seen in normal state. Patient was given Narcan in the field with positive response momentarily. Patient was emergently intubated in the field for airway protection. Past Medical History Unknown Family History Unknown Lives: with Family Review of Systems Review of Systems Review of systems can not be completed, patient is sedated and intubated. Allergies: Coded Allergies: NO KNOWN ALLERGIES (Unverified , 04/27/12) Medications Current Medications Medications Dose Ordered Sig/Renny Route Start Time Stop Time Status Last Admin Dose Admin Midazolam HCl 50 ml @ 1 mls/hr Q24H IV 06/02/25 21:00 06/02/25 21:35 1 MLS/HR Fentanyl Citrate 250 ml @ 2.5 mls/hr Q24H IV 06/02/25 21:00 Norepinephrine Bitartrate 250 ml @ 3.75 mls/hr Q24H IV 06/02/25 21:15 06/02/25 20:15 11.25 MLS/HR Sodium Chloride 1,000 ml @ 250 mls/hr Q4H IV 06/03/25 04:00 06/03/25 05:59 06/03/25 04:16 250 MLS/HR Sodium Chloride 1,000 ml @ 150 mls/hr Q6H40M IV 06/03/25 06:00 Insulin Human (Reg)/Sodium Chloride 100 ml @ 0.5 mls/hr Q24H IV 06/03/25 00:00 06/03/25 01:20 2 MLS/HR Dextrose 50 ml UD PRN IV 06/03/25 00:00 Diagnostic Test (Pha) 1 strip Q90MIN 06/03/25 00:00 06/03/25 04:40 1 STRIP Insulin Glargine 15 units DAILY SC 06/03/25 10:00 Vasopressin 20 units/Sodium Chloride 100 ml @ 9 mls/hr Q11H7M IV 06/03/25 02:10 06/03/25 02:10 3 MLS/HR Exam Vital Signs Vital Signs Date Time Temp Pulse Resp B/P (MAP) Pulse Ox O2 Delivery O2 Flow Rate FiO2 06/03/25 04:30 99/42 06/03/25 04:04 128 26 97 80 06/03/25 03:00 99.0 99.0 06/02/25 22:15 Mechanical Ventilator+ Exam Gen: 34-year-old female in moderate distress Skin: Warm, dry, normal color and texture, no rash. HEENT: Normocephalic atraumatic, mucous membranes moist and pink. Neck: Cervical and supraclavicular nodes normal without enlargement, trachea is midline, thyroid gland is normal without masses. Pulmonary: Intubated, diminished breath sounds bilaterally Cardiac: Sinus tachycardia Abdomen: Soft, nontender, nondistended, bowel sounds present all 4 quadrants, no guarding, no rigidity, no organomegaly. Extremities: No cyanosis, clubbing, no edema Neuro: Sedated Labs/Xrays ORDERING PHYSICIAN: GIOVANNI RIOS MD PROCEDURE(s): CXRP - CHEST PORTABLE REASON: found down, intubated ORDER NUMBER(s): [id number], ACCESSION NUMBER(s): [id number] CHEST RADIOGRAPH Indication: found down, intubated Technique: Single frontal view of the chest was obtained COMPARISON: None FINDINGS: Lines and Tubes: Endotracheal tube terminates 3.1 cm above the ramu. Enteric tube courses past the GE junction with the tip and side port overlying the plane of the stomach. Lungs: Possible small/ nodular opacity in the left mid lung. Lungs are otherwise grossly clear. Pleura: No effusion. No pneumothorax. Cardiomediastinal contours: Unremarkable Bones: Unremarkable Other: The partially visualized gastric bubble is distended with gas. IMPRESSION: Endotracheal and enteric tubes are in satisfactory position. Question a small/nodular opacity in the left midlung. Lungs are otherwise grossly clear. No pneumothorax. Partially visualized gaseous distention of the stomach. RING PHYSICIAN: GIOVANNI RIOS MD PROCEDURE(s): HWOCT - HEAD WITHOUT CONTRAST REASON: found down ORDER NUMBER(s): [id number], ACCESSION NUMBER(s): [id number] EXAM: CT HEAD WITHOUT CONTRAST INDICATION: found down TECHNIQUE: CT of the head without intravenous contrast. Radiation Dose : 1. Head: CT Dose: CTDI volume is 47.5 mGy. Dose-length product is 83.31 mGy*cm The dose indicators for CT are the volume Computed Tomography (CT) Dose Index (CTDIvol) and the Dose Length Product (DLP), and are measured in units of mGy and mGy-cm, respectively. These indicators are not patient dose, but values generated from the CT scanner acquisition factors. The report includes radiation exposure data for exposures received during this examination. COMPARISON: None FINDINGS: There is no evidence of acute intracranial hemorrhage, extra-axial collection, mass effect, midline shift, herniation or hydrocephalus. The ventricles, sulci and cisterns are age appropriate. The rod-white differentiation is intact. The visualized paranasal sinuses and mastoid air cells are clear. The surrounding soft tissues and osseous structures are unremarkable. Nasogastric tube. IMPRESSION: 1. No acute intracranial abnormality. Radiation optimization: All CT scans at this facility use at least one of these dose optimization techniques: automated exposure control mA and/or kV adjustment per patient size (includes targeted exams where dose is matched to clinical indication) or iterative reconstruction. Labs Test 06/03/25 04:39 06/03/25 01:45 06/03/25 00:30 06/02/25 22:39 Range/Units POC Glucose 106 70-106 mg/dl Blood Gas Specimen Type Venous Blood Gas Sample Site Vbg - n/a Blood Gas Patient Temperature 37.0 Arterial Blood Date Drawn [id number] Dougie Test N/a Venous Blood pH 7.208 L 7.320-7.430 Venous Blood pCO2 at Patient Temp 47.6 38.0-54.0 mmHg Venous Blood pO2 at Patient Temp 48.9 H 23.0-48.0 mmHg Venous Blood HCO3 18.5 L 22.0-29.0 mmol/L Venous Blood Base Excess -9.4 L -2.0-3.0 mmol/L Blood Gas Set Respiration Rate 24.0 Blood Gas Modality Vent - ac FiO2 % 80.0 Blood Gas Tidal Volume 400.0 Blood Gas PEEP or CPAP 5.0 Creatine Kinase > 39944 H 34-145 U/L Troponin I High Sensitivity 4005 *H </=34 ng/L White Blood Count 14.2 H 4.4-10.8 10^3/uL Red Blood Count 3.72 L 4.0-5.20 10^6/uL Hemoglobin 11.3 L 12.2-16.2 g/dL Hematocrit 36.6 36.0-46.0 % Mean Corpuscular Volume 98.4 # 80.0-100.0 fL Mean Corpuscular Hemoglobin 30.5 28.0-32.0 pg Mean Corpuscular Hemoglobin Concent 31.0 L 32.0-36.0 g/dL Red Cell Distribution Width 19.7 H 11.8-14.3 % Platelet Count 296 140-450 10^3/uL Mean Platelet Volume 7.9 6.9-10.8 fL Neutrophils (%) (Auto) 91.8 H 37.0-80.0 % Lymphocytes (%) (Auto) 6.5 L 10.0-50.0 % Monocytes (%) (Auto) 1.4 0.0-12.0 % Eosinophils (%) (Auto) 0.0 0.0-7.0 % Basophils (%) (Auto) 0.3 0.0-2.0 % Neutrophils # (Auto) 13.1 H 1.6-8.6 10 ^3/uL Lymphocytes # (Auto) 0.9 0.4-5.4 10 ^3/uL Monocytes # (Auto) 0.2 0-1.3 10 ^3/uL Eosinophils # (Auto) 0 0-0.8 10 ^3/uL Basophils # (Auto) 0 0-0.2 10 ^3/uL Nucleated Red Blood Cells 0.1 % Test 06/02/25 22:37 06/02/25 22:22 06/02/25 22:20 06/02/25 20:23 Range/Units Sodium Level 139 136-145 mmol/L Potassium Level 7.6 *H 3.5-5.1 mmol/L Chloride Level 106 98-107 mmol/L Carbon Dioxide Level 12 L 20-31 mmol/L Anion Gap 21 H 5-15 Blood Urea Nitrogen 19 9-23 mg/dL Creatinine 2.87 H 0.550-1.02 mg/dL Glomerular Filtration Rate Calc 21 >90 mL/min BUN/Creatinine Ratio 6.6 L 10.0-20.0 Serum Glucose 207 H 74-106 mg/dL Calcium Level 6.0 *L 8.7-10.4 mg/dL Phosphorus Level 21.1 H 2.4-5.1 mg/dL Magnesium Level 2.9 H 1.6-2.6 mg/dL Total Bilirubin 0.6 0.2-1.0 mg/dL Aspartate Amino Transferase (AST) > 6000 H 13-40 U/L Alanine Aminotransferase (ALT) 4005 H 7-40 U/L Alkaline Phosphatase 110 46-116 U/L Total Protein 6.6 5.7-8.2 g/dL Albumin 3.9 3.2-4.8 g/dL Plasma/Serum Blood Alcohol 3.0 <10 mg/dL Lactic Acid Level 9.1 *H 0.4-2.0 mmol/L Blood Gas Critical Value Read Back Yes Blood Gas Notified Whom Md dick rios Blood Gas Notified Time Blood Gas Notified By Rt jarvis zabala Urine Color Colorless Yellow Urine Clarity Clear Clear Urine pH 6.0 5.0-9.0 Urine Specific [place] 1.002 1.001-1.035 Urine Protein Negative Negative Urine Ketones Negative Negative Urine Blood Negative Negative /uL Urine Nitrite Negative Negative Urine Bilirubin Negative Negative Urine Urobilinogen Normal Negative mg/dL Urine Leukocyte Esterase Negative Negative /uL Urine RBC 1 0 - 4 /hpf Urine Microscopic WBC 0-5 /HPF Urine Squamous Epithelial Cells Few <5 /hpf Urine Bacteria Few H None Seen /hpf Urine Glucose Normal Normal mg/dL Urine Test Negative Negative Urine Opiates Screen Neg NEGATIVE Urine Fentanyl Screen Pos NEGATIVE Urine Barbiturates Screen Neg NEGATIVE Urine Phencyclidine Screen Neg NEGATIVE Urine Amphetamines Screen Neg NEGATIVE Urine Benzodiazepines Screen Neg NEGATIVE Urine Cocaine Screen Neg NEGATIVE Urine Cannabinoids Screen Pos NEGATIVE Test 06/02/25 20:12 Range/Units B-Type Natriuretic Peptide 95.14 0-100 pg/mL Lipase 29 12-53 U/L SEPSIS Sepsis Screen Date sepsis recognized/suspect: Jun 02, 2025 Time Sepsis recognized/suspect: 2214 Recent Procedure: No On Antibiotic Therapy: No Respiratory Rate >20: No Heart Rate >90: Yes Temp<36 C (96.8 F) or >38.3 C: Yes SBP <90 or MAP <65 mmHG: Yes New Acute Mental Status Change: No Is the patient on CPAP, BIPAP,: No Physician Orders Communication Order (06/02/25 21:02) Norepinephrine 8 Mg/250ml Kit (Levophed) (06/02/25 21:15) Ventilator Orders (06/02/25 21:11) Communication Order (06/02/25 20:35) Venous Blood Gas (06/02/25 22:30) Insulin Drip Protocol (06/02/25 ) Sodium Chloride 0.9% (06/03/25 04:00) Sodium Chloride 0.9% (06/03/25 06:00) Insulin Drip 100 Unit/100ml (Myxredlin 1 (06/03/25 00:00) Dextrose 50% Syringe (06/03/25 00:00) Glucose Blood (Accu-Chek Comfort Curve T (06/03/25 00:00) Basic Metabolic Panel (06/03/25 05:52) Basic Metabolic Panel (06/03/25 11:52) Basic Metabolic Panel (06/03/25 17:52) Neurological Assessment (06/02/25 23:52) Vs/Hemodynamics .PER UNIT PROTOCOL (06/02/25 23:52) Insulin Lantus (Glargine) (Lantus) (06/03/25 10:00) Check Blood Glucose Q1HR (06/02/25 23:52) Sodium Chl 0.9% (So... W/Vasopressin (06/03/25 02:10) Venous Blood Gas (06/03/25 01:45) Ventilator Orders (06/03/25 02:26) Dobutamine 1000mcg/Ml (Dobutrex) (06/03/25 02:30) Cvp Monitoring (06/03/25 ) Magnesium (06/03/25 04:55) Phosphorus (06/03/25 04:55) Basic Metabolic Panel (06/03/25 04:55) Complete Blood Count (06/03/25 04:55) Lactic Acid W/ Reflex Order (06/03/25 04:55) NS (06/03/25 05:00) Vancomycin Per Pharmacy (06/03/25 05:00) Zosyn Extended Infusion (06/03/25 06:00) * Neurology Consult (06/03/25 04:55) *[facility] (06/03/25 04:55) * Cardiology Consult (06/03/25 04:55) Albuterol Medneb (Ventolin Medneb) (06/03/25 05:00) Glucose Blood (Accu-Chek Comfort Curve T (06/03/25 08:00) Mild Sliding Scale (06/03/25 08:00) Dextrose 50% Syringe (06/03/25 05:00) Admit (06/03/25 04:55) Ondansetron Hcl (Zofran) (06/03/25 05:00) Enoxaparin Sodium (Lovenox) (06/03/25 10:00) Complete Blood Count (06/04/25 04:00) Comprehensive Metabolic Panel (06/04/25 04:00) Npo (Nothing By Mouth) Diet (06/03/25 Breakfast) Echo 2d Mode Cardiac Dop (06/03/25 04:55) Condition: Unstable (06/03/25 04:55) Acetaminophen Tablet (Tylenol Tablet) (06/03/25 05:00) Maintain Bed Rest (06/03/25 04:55) Sequential Compression Device (06/03/25 ) Nitroglycerin Sublingual (Ntrostat Subli (06/03/25 05:00) Morphine Sulfate Injection (06/03/25 05:00) Stat Ekg For Chest Pain (06/03/25 04:55) Notify Md Of Changes From Base (06/03/25 04:55) 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 (06/03/25 04:55) Emergency Dysrhythmia Protocol (06/03/25 04:55) Rhythm Strips Once Every Shift (06/03/25 04:55) Oxygen By Nasal Cannula (06/03/25 04:55) Vital Signs Date Time Temp Pulse Resp B/P (MAP) Pulse Ox O2 Delivery O2 Flow Rate FiO2 06/03/25 04:30 99/42 06/03/25 04:04 128 26 104/51 (68) 97 80 06/03/25 03:45 95/40 06/03/25 03:40 97/36 06/03/25 03:30 95/40 06/03/25 03:25 89/38 06/03/25 03:20 90/36 06/03/25 03:15 98/32 06/03/25 03:10 88/38 06/03/25 03:05 81/36 06/03/25 03:00 99.0 125 24 88/46 (60) 97 99.0 06/03/25 03:00 88/46 06/03/25 02:55 67/47 06/03/25 02:50 84/46 06/03/25 02:45 86/39 06/03/25 02:40 84/40 06/03/25 02:40 84/40 06/03/25 02:36 128 26 82/32 (49) 97 80 06/03/25 02:34 84/40 06/03/25 02:15 99.1 129 28 82/31 (48) 96 99.1 06/03/25 02:15 82/31 06/03/25 02:10 82/31 06/03/25 02:00 91/36 06/03/25 02:00 91/36 06/03/25 02:00 99.3 130 28 91/36 (54) 97 99.3 06/03/25 01:45 99.3 130 27 81/35 (50) 96 99.3 06/03/25 01:30 99.5 132 25 82/33 (49) 95 99.5 06/03/25 01:15 99.9 132 25 82/33 (49) 95 99.9 06/03/25 01:00 100.2 137 24 81/36 (51) 94 100.2 06/03/25 01:00 81/36 06/03/25 01:00 81/36 06/03/25 00:45 77/35 06/03/25 00:45 99.9 133 24 77/35 (49) 94 99.9 06/03/25 00:30 99.5 134 24 86/37 (53) 94 99.5 06/03/25 00:30 87/38 06/03/25 00:15 99.0 134 24 86/37 (53) 94 99.0 06/03/25 00:00 87/30 06/03/25 00:00 87/30 06/03/25 00:00 98.4 133 24 87/30 (49) 98 98.4 06/02/25 23:58 128 24 111/30 (57) 100 80 06/02/25 23:45 97.3 129 24 102/34 (56) 99 97.3 06/02/25 23:30 97.3 127 24 84/29 (47) 99 97.3 06/02/25 23:15 96.8 131 24 95/37 (56) 99 96.8 06/02/25 23:00 105/43 06/02/25 23:00 105/43 06/02/25 23:00 95.7 126 24 105/43 (63) 99 95.7 06/02/25 22:45 95.7 120 24 99/29 (52) 99 95.7 06/02/25 22:37 117 20 92/36 (54) 99 100 06/02/25 22:34 117 24 92/36 99 100 06/02/25 22:30 95.3 117 24 91/30 (50) 99 95.3 06/02/25 22:30 84/29 06/02/25 22:15 131 18 Mechanical Ventilator+ 100 100 06/02/25 22:15 94.8 117 24 92/36 (54) 99 94.8 06/02/25 22:00 94.5 115 22 98/2 (34) 98 94.5 06/02/25 22:00 98/20 06/02/25 22:00 98/20 06/02/25 21:55 87/29 06/02/25 21:50 96/27 06/02/25 21:45 94.3 115 24 88/30 (49) 98 94.3 06/02/25 21:45 88/30 06/02/25 21:40 88/27 06/02/25 21:35 97/41 06/02/25 21:30 94.1 115 24 96/30 (52) 99 94.1 06/02/25 21:05 94.1 112 18 96/30 (52) 98 94.1 Laboratory Tests Test 06/02/25 20:12 06/02/25 22:22 06/02/25 22:39 Lactic Acid Level 11.0 mmol/L (0.4-2.0) *H 9.1 mmol/L (0.4-2.0) *H White Blood Count 16.3 10^3/uL (4.4-10.8) H 14.2 10^3/uL (4.4-10.8) H Medications Medications Dose Ordered Sig/Renny Route Start Time Stop Time Status Last Admin Dose Admin Calcium Gluconate/ Sodium Chloride 50 ml @ 100 mls/hr Q30M IV 06/02/25 22:30 06/02/25 23:29 DC 06/02/25 23:00 100 MLS/HR Calcium Gluconate/ Sodium Chloride 50 ml @ 100 mls/hr Q30M IV 06/02/25 23:45 06/03/25 00:44 DC 06/03/25 00:15 100 MLS/HR Ceftriaxone Sodium 50 ml @ 100 mls/hr ONCE ONCE IV 06/02/25 20:15 06/02/25 20:44 DC 06/02/25 20:58 100 MLS/HR Dextrose 100 ml ONCE ONCE IV 06/02/25 21:00 06/02/25 21:03 DC 06/02/25 19:57 100 ML Diagnostic Test (Pha) 1 strip Q90MIN 06/03/25 00:00 06/03/25 04:40 1 STRIP Dobutamine HCl/ Dextrose 250 ml @ 15.6 mls/hr Q16H2M ONCE IV 06/03/25 02:30 06/03/25 18:31 06/03/25 02:34 15.6 MLS/HR Etomidate 20 mg ONCE ONCE IV 06/02/25 21:00 06/02/25 21:01 DC 06/02/25 19:58 20 MG Insulin Glargine 15 units ONCE ONCE SC 06/03/25 00:00 06/03/25 00:01 DC 06/03/25 00:00 15 UNITS Insulin Human (Reg)/Sodium Chloride 100 ml @ 0.5 mls/hr Q24H IV 06/03/25 00:00 06/03/25 01:20 2 MLS/HR Midazolam HCl 50 ml @ 1 mls/hr Q24H IV 06/02/25 21:00 06/02/25 21:35 1 MLS/HR Norepinephrine Bitartrate 250 ml @ 3.75 mls/hr Q24H IV 06/02/25 21:15 06/02/25 20:15 11.25 MLS/HR Rocuronium Red Bud 100 mg ONCE ONCE IV 06/02/25 21:00 06/02/25 21:01 DC 06/02/25 19:59 100 MG Sodium Bicarbonate 100 ml ONCE ONCE IV 06/02/25 22:30 06/02/25 22:36 DC 06/02/25 22:30 100 ML Sodium Bicarbonate 100 ml ONCE ONCE IV 06/02/25 23:45 06/02/25 23:46 DC 06/02/25 23:45 100 ML Sodium Chloride 1,000 ml @ 250 mls/hr Q4H IV 06/03/25 04:00 06/03/25 05:59 06/03/25 04:16 250 MLS/HR Sodium Chloride 1,000 ml @ 500 mls/hr Q2H IV 06/03/25 00:00 06/03/25 03:59 DC 06/03/25 02:00 500 MLS/HR Sodium Chloride 1,000 ml @ 1,000 mls/hr Q1H ONCE IV 06/02/25 20:15 06/02/25 21:14 DC 06/02/25 20:15 1,000 MLS/HR Sodium Chloride 1,000 ml @ 1,000 mls/hr Q1H ONCE IV 06/02/25 21:30 06/02/25 22:29 DC 06/02/25 21:30 1,000 MLS/HR Sodium Chloride 1,000 ml @ 1,000 mls/hr Q1H ONCE IV 06/02/25 22:30 06/02/25 23:29 DC 06/02/25 22:30 1,000 MLS/HR Sodium Chloride 1,000 ml @ 1,000 mls/hr Q1H ONCE IV 06/02/25 23:45 06/03/25 00:44 DC 06/02/25 23:45 1,000 MLS/HR Sodium Chloride 1,000 ml @ 1,000 mls/hr Q1H ONCE IV 06/03/25 02:10 06/03/25 04:16 DC 06/03/25 02:10 1,000 MLS/HR Vancomycin HCl 200 ml @ 200 mls/hr ONCE ONCE IV 06/02/25 22:30 06/02/25 23:29 DC 06/02/25 22:30 200 MLS/HR Vasopressin 20 units/Sodium Chloride 100 ml @ 9 mls/hr Q11H7M IV 06/03/25 02:10 06/03/25 02:10 3 MLS/HR Assessment/Plan Assessment/Plan Acute encephalopathy ? Toxic encephalopathy Possible overdose Rhabdomyolysis Multi organ failure ? Aspiration pneumonia Plan Admit the patient to ICU to the hospitalist Nephrology consult Nephrology consult Cardiology consult Maintenance IV fluids Zosyn/vancomycin Continue treatment per orders Total critical care time excluding procedures performed this 55 minutes. Plan discussed with: Other My Orders Orders - HERNAN CORDOVA AGACNP Procedure Category Date Status Time Cvp Monitoring ED NURSING 06/03/25 Transmitted NS PHA 06/03/25 Verified 05:00 Vancomycin Per PHA 06/03/25 Verified Pharmacy 05:00 Zosyn Extended PHA 06/03/25 Verified Infusion 06:00 * Neurology Consult CONS 06/03/25 Verified 04:55 *[facility] CONS 06/03/25 Verified -[place] 04:55 * Cardiology Consult CONS 06/03/25 Verified 04:55 Albuterol Medneb PHA 06/03/25 Verified (Ventolin Medneb) 05:00 Glucose Blood [facility] 06/03/25 Verified (Accu-Chek Comfort 08:00 Mild Sliding Scale PHA 06/03/25 Verified 08:00 Dextrose 50% Syringe PHA 06/03/25 Verified 05:00 Admit ADMIT 06/03/25 Verified 04:55 Ondansetron Hcl [facility] 06/03/25 Verified (Zofran) 05:00 Enoxaparin Sodium [facility] 06/03/25 Verified (Lovenox) 10:00 Complete Blood Count LAB 06/04/25 Verified 04:00 Comprehensive LAB 06/04/25 Verified Metabolic Panel 04:00 Npo (Nothing By DIET 06/03/25 Verified Mouth) Diet Breakfast Echo 2d Mode Cardiac US 06/03/25 Verified DOP 04:55 Condition: Unstable [facility] 06/03/25 Verified 04:55 Acetaminophen Tablet [facility] 06/03/25 Verified (Tylenol Tablet) 05:00 Maintain Bed Rest [facility] 06/03/25 Verified 04:55 Sequential [facility] 06/03/25 Verified Compression Device Nitroglycerin [facility] 06/03/25 Verified Sublingual (Ntrostat 05:00 Morphine Sulfate [facility] 06/03/25 Verified Injection 05:00 Stat Ekg For Chest [facility] 06/03/25 Verified Pain 04:55 Notify Of Changes [facility] 06/03/25 Verified From Base 04:55 [employer] Manager For [facility] 06/03/25 Verified 24 Hours 04:55 Emergency Dysrhythmia [facility] 06/03/25 Verified Protocol 04:55 Rhythm Strips Once [facility] 06/03/25 Verified Every Shift 04:55 Oxygen By Nasal [facility] 06/03/25 Verified Cannula 04:55 Date of Service: Jun 03, 2025 Billing Provider: HERNAN CORDOVA Common Visit Codes: [id number] CARE [id number] MIN HERNAN CORDOVA Jun 03, 2025 05:07
[2025-06-03] MEDS: PIPERACILLIN-TAZOB 3.375GM 100 ML IV SCH (06:19)
[2025-06-03 06:31] LABS: Hematocrit 33.3 % (36.0-46.0); Hemoglobin 10.7 g/dL (12.2-16.2); Mean Corpuscular Hemoglobin 30.2 pg (28.0-32.0); Mean Corpuscular Volume 94.4 fL (80.0-100.0); Nucleated Red Blood Cells % 0.3 %
[2025-06-03 06:33] LABS: Potassium 4.6 mmol/L (3.5-5.1)
[2025-06-03 06:34] LABS: Anion Gap 18 (5-15)
[2025-06-03 06:39] LABS: BUN/Creatinine Ratio 7.8 (10.0-20.0); Carbon Dioxide 19 mmol/L (20-31); Chloride 114 mmol/L (98-107); Glucose 104 mg/dL (74-106); Sodium 151 mmol/L (136-145)
[2025-06-03 06:40] LABS: Calcium 5.2 mg/dL (8.7-10.4); Magnesium 2.0 mg/dL (1.6-2.6)
[2025-06-03 06:41] LABS: Blood Urea Nitrogen 23 mg/dL (9-23)
[2025-06-03 06:42] LABS: Lactic Acid w/Reflex 5.1 mmol/L (0.4-2.0)
[2025-06-03] MEDS: MAGNESIUM SULFATE 1GM/100ML 100 ML IV SCH (07:00)
[2025-06-03] MEDS: InsuLIN REG 1unit/0.01ml Soln (100units/ml) SC SCH (07:44)
[2025-06-03] MEDS: ACCU-CHEK COMFORT CURVE STRIP VI SCH ×2 (08:00)
[2025-06-03] MEDS: CALCIUM GLUC 1,000mg/50ml-NS 50 ML IV SCH (08:19)
[2025-06-03] MEDS: SOD CHL 0.45% 1,000 ML IV SCH (08:30)
[2025-06-03] MEDS: LACTATED RINGER'S 1,000 ML IV ONE (08:30)
--- NOTE | 2025-06-03 09:30 | DVHINCON2 ---
Date of service: Jun 03, 2025 Referring Physician Martinez Reason for Consultation Acute encephalopathy History of Present Illness Ms. 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 At that time, the patient is intubated, sedated, on pressor drip, the history is obtained from her nurse and chart review. She is responsive to light painful stimuli with moving the arms Her family found her nonresponsiveness in the evening on 06/02/2025, when EMS arrived, her respiration was four per minute, she was had bradycardia, pinpoint pupils, the patient is responsive to IV Narcan 4 mg. Her glucose level was 21 and she was treated accordingly UDS, 06/02/2025: Cannabinoids, fentanyl Plasma alcohol, 05/23/25: 3 Urinalysis, 06/02/2025: WBC:, urine leukocyte esterase: Negative WBC/HB/PLT/MCV, 06/02/2025: 16.3/10.6/324/103.4, 06/03/2025: 8/10.7/208/94.4 Na, 06/02/2025: 135, 139, 06/03/25: 151 K, 06/02/2025: 7.5, 7.6, 06/03/25: 406 HCO3, 06/02/2025: <10, 12, 06/03/2025: 19 Ca, 06/02/2025: 6 ft two, six, 06/03/2025: 5.2 Lactic acid, 06/02/2025: 11, 9.1, 06/03/2025: 5.1, 2.6 TBI/AST/ALT/AP, 06/02/2025: 0.6/>6000?4005/110 CK, 06/03/2025:>[id number] Troponin I high sensitivity, 06/02/2025: 2381, 2267, 06/03/25: 4005 Chest x-ray, 06/02/2025: Endotracheal and enteric tubes are in satisfactory position. Question a small/nodular opacity in the left midlung. Lungs are otherwise grossly clear. No pneumothorax. Partially visualized gaseous distention of the stomach. CT head, 06/02/2025: No acute intracranial abnormality. Past Medical History Anxiety Past Surgical History Denies all surgeries Family History Unknown Social History Smoker: Non-Smoker Alcohol: Alcohol abuse Drugs: Wax, UDS on 06/02/2025 was positive for fentanyl and cannabinoids Lives In: Home Allergies: Coded Allergies: NO KNOWN ALLERGIES (Unverified , 04/27/12) Home Meds No Active Prescriptions or Reported Meds Current Medications Current Medications Medications (Trade) Dose Ordered Sig/Renny Route PRN Reason Start Time Stop Time Status Last Admin Midazolam HCl 50 ml @ 1 mls/hr Q24H IV 06/02/25 21:00 06/02/25 21:35 Fentanyl Citrate 250 ml @ 2.5 mls/hr Q24H IV 06/02/25 21:00 Norepinephrine Bitartrate 250 ml @ 3.75 mls/hr Q24H IV 06/02/25 21:15 06/03/25 07:53 Calcium Gluconate/ Sodium Chloride 50 ml @ 100 mls/hr Q30M IV 06/02/25 22:30 06/02/25 23:29 DC 06/02/25 23:00 Calcium Gluconate/ Sodium Chloride 50 ml @ 100 mls/hr Q30M IV 06/02/25 23:45 06/03/25 00:44 DC 06/03/25 00:15 Sodium Chloride 1,000 ml @ 500 mls/hr Q2H IV 06/03/25 00:00 06/03/25 03:59 DC 06/03/25 02:00 Sodium Chloride 1,000 ml @ 250 mls/hr Q4H IV 06/03/25 04:00 06/03/25 05:59 DC 06/03/25 04:16 Sodium Chloride 1,000 ml @ 150 mls/hr Q6H40M IV 06/03/25 06:00 06/03/25 07:30 Insulin Human (Reg)/Sodium Chloride 100 ml @ 0.5 mls/hr Q24H IV 06/03/25 00:00 06/03/25 01:20 Dextrose 50 ml UD PRN IV SEE CURRENT ALGORITHM or SCALE 06/03/25 00:00 Diagnostic Test (Pha) (Accu-Chek Comfort Curve T) 1 strip Q90MIN 06/03/25 00:00 06/03/25 06:19 Insulin Glargine (Lantus) 15 units DAILY SC 06/03/25 10:00 Vasopressin 20 units/Sodium Chloride 100 ml @ 9 mls/hr Q11H7M IV 06/03/25 02:10 06/03/25 02:10 Vancomycin HCl 0 ml @ 0 mls/hr UD IV 06/03/25 05:00 UNV Piperacillin Sod/ Tazobactam Sod 100 ml @ 25 mls/hr Q8HR IV 06/03/25 06:00 06/03/25 06:19 Albuterol (Ventolin Medneb) 2.5 mg Q6HPRN PRN NEB SHORTNESS OF BREATH 06/03/25 05:00 Diagnostic Test (Pha) (Accu-Chek Comfort Curve T) 1 strip IQ4HR 06/03/25 08:00 Insulin Human Regular (InsuLIN R) IQ4HR SC 06/03/25 08:00 Dextrose 50 ml UD PRN IV Blood Sugar LESS THAN 60 06/03/25 05:00 Ondansetron HCl (Zofran) 4 mg Q4HP PRN IV NAUSEA / VOMITING 06/03/25 05:00 Enoxaparin Sodium (Lovenox) 30 mg DAILY SC 06/03/25 10:00 Acetaminophen (Tylenol Tablet) 650 mg Q6HP PRN PO PAIN SCALE 1-3 OR TEMP>100.4 06/03/25 05:00 Hold Nitroglycerin (Ntrostat Sublingual) 0.4 mg Q5MINP PRN SL FOR CHEST PAIN 06/03/25 05:00 Morphine Sulfate 2 mg Q30M PRN IV FOR CHEST PAIN 06/03/25 05:00 Calcium Gluconate/ Sodium Chloride 50 ml @ 100 mls/hr Q30M IV 06/03/25 07:00 06/03/25 07:59 DC 06/03/25 08:19 Magnesium Sulfate/ Dextrose 100 ml @ 100 mls/hr Q1HR IV 06/03/25 07:00 06/03/25 09:00 DC Review of Systems Unobtainable Vital Signs Vital Signs Date Time Temp Pulse Resp B/P (MAP) Pulse Ox O2 Delivery O2 Flow Rate FiO2 06/03/25 08:19 128 24 98/45 (62) 98 80 06/03/25 07:00 99.4 99.4 06/02/25 22:15 Mechanical Ventilator+ Physical Exam The patient is well-nourished and well-developed with no distress. The patient is intubated HEENT: Normocephalic, neck supple, no carotid bruits Lungs: Clear to auscultation Cardiovascular: Regular rate and region, S1, S2, no murmurs Abdomen: Soft, nontender, normal bowel sounds MENTAL STATUS: Responds to painful stimuli CRANIAL NERVES: Pupils are equal, round and reactive.There are corneal reflexes and doll's eyes phenomenon. No signs of facial weakness. There are gagging or coughing reflexes SENSATION: Responses to pain stimuli. MOTOR: Normal tone in the upper and lower extremity. Normal muscle bulk. No fasciculations. No spontaneous movement. REFLEXES: Deep tendon reflexes are symmetrical. No pathological reflexes. CEREBELLAR/COORDINATION: Deferred GAIT/STATION: deferred. Labs/Diagnostic Data Labs Test 06/03/25 08:53 06/03/25 08:39 06/03/25 08:36 06/03/25 07:55 Range/Units Blood Gas Specimen Type Venous Blood Gas Sample Site Vbg - n/a Blood Gas Patient Temperature 37.0 Arterial Blood Date Drawn [id number] Dougie Test N/a Venous Blood pH 7.093 *L 7.320-7.430 Venous Blood pCO2 at Patient Temp 47.4 38.0-54.0 mmHg Venous Blood pO2 at Patient Temp < 36.5 23.0-48.0 mmHg Venous Blood HCO3 14.2 L 22.0-29.0 mmol/L Venous Blood Base Excess -15.5 L -2.0-3.0 mmol/L Blood Gas Set Respiration Rate 24.0 Blood Gas Modality Vent - ac FiO2 % 80.0 Blood Gas Tidal Volume 450.0 Blood Gas PEEP or CPAP 5.0 Blood Gas Critical Value Read Back Yes Blood Gas Notified Whom Sukumar bahena Blood Gas Notified Time [id number] Blood Gas Notified By Yanna pulido POC Glucose 101 70-106 mg/dl Vitamin D 25-Hydroxy 9.2 L 30.0-100 ng/mL Lactic Acid Level 2.6 *H 0.4-2.0 mmol/L Test 06/03/25 05:53 06/03/25 05:33 06/03/25 00:30 06/02/25 22:37 Range/Units White Blood Count 8.0 # 4.4-10.8 10^3/uL Red Blood Count 3.53 L 4.0-5.20 10^6/uL Hemoglobin 10.7 L 12.2-16.2 g/dL Hematocrit 33.3 L 36.0-46.0 % Mean Corpuscular Volume 94.4 # 80.0-100.0 fL Mean Corpuscular Hemoglobin 30.2 28.0-32.0 pg Mean Corpuscular Hemoglobin Concent 32.0 32.0-36.0 g/dL Red Cell Distribution Width 19.4 H 11.8-14.3 % Platelet Count 208 140-450 10^3/uL Mean Platelet Volume 8.4 6.9-10.8 fL Neutrophils (%) (Auto) 85.0 H 37.0-80.0 % Lymphocytes (%) (Auto) 12.1 10.0-50.0 % Monocytes (%) (Auto) 2.6 0.0-12.0 % Eosinophils (%) (Auto) 0.1 0.0-7.0 % Basophils (%) (Auto) 0.2 0.0-2.0 % Neutrophils # (Auto) 6.8 1.6-8.6 10 ^3/uL Lymphocytes # (Auto) 1.0 0.4-5.4 10 ^3/uL Monocytes # (Auto) 0.2 0-1.3 10 ^3/uL Eosinophils # (Auto) 0 0-0.8 10 ^3/uL Basophils # (Auto) 0 0-0.2 10 ^3/uL Nucleated Red Blood Cells 0.3 % Sodium Level 151 #H 136-145 mmol/L Potassium Level 4.6 # 3.5-5.1 mmol/L Chloride Level 114 H 98-107 mmol/L Carbon Dioxide Level 19 L 20-31 mmol/L Anion Gap 18 H 5-15 Blood Urea Nitrogen 23 9-23 mg/dL Creatinine 2.96 H 0.550-1.02 mg/dL Glomerular Filtration Rate Calc 21 >90 mL/min BUN/Creatinine Ratio 7.8 L 10.0-20.0 Serum Glucose 104 74-106 mg/dL Calcium Level 5.2 *L 8.7-10.4 mg/dL Phosphorus Level 8.2 H 2.4-5.1 mg/dL Magnesium Level 2.0 1.6-2.6 mg/dL Creatine Kinase > 55169 H 34-145 U/L Troponin I High Sensitivity 4005 *H </=34 ng/L Total Bilirubin 0.6 0.2-1.0 mg/dL Aspartate Amino Transferase (AST) > 6000 H 13-40 U/L Alanine Aminotransferase (ALT) 4005 H 7-40 U/L Alkaline Phosphatase 110 46-116 U/L Total Protein 6.6 5.7-8.2 g/dL Albumin 3.9 3.2-4.8 g/dL Plasma/Serum Blood Alcohol 3.0 <10 mg/dL Test 06/02/25 20:23 06/02/25 20:12 Range/Units Urine Color Colorless Yellow Urine Clarity Clear Clear Urine pH 6.0 5.0-9.0 Urine Specific [place] 1.002 1.001-1.035 Urine Protein Negative Negative Urine Ketones Negative Negative Urine Blood Negative Negative /uL Urine Nitrite Negative Negative Urine Bilirubin Negative Negative Urine Urobilinogen Normal Negative mg/dL Urine Leukocyte Esterase Negative Negative /uL Urine RBC 1 0 - 4 /hpf Urine Microscopic WBC 0-5 /HPF Urine Squamous Epithelial Cells Few <5 /hpf Urine Bacteria Few H None Seen /hpf Urine Glucose Normal Normal mg/dL Urine Test Negative Negative Urine Opiates Screen Neg NEGATIVE Urine Fentanyl Screen Pos NEGATIVE Urine Barbiturates Screen Neg NEGATIVE Urine Phencyclidine Screen Neg NEGATIVE Urine Amphetamines Screen Neg NEGATIVE Urine Benzodiazepines Screen Neg NEGATIVE Urine Cocaine Screen Neg NEGATIVE Urine Cannabinoids Screen Pos NEGATIVE B-Type Natriuretic Peptide 95.14 0-100 pg/mL Lipase 29 12-53 U/L Assessment Coma Fentanyl overdosing/toxic encephalopathy Hypoxic encephalopathy Hypoxic encephalopathy Acute respiratory failure secondary to fentanyl overdosing Hypoglycemia Rhabdomyolysis Elevated liver function tests Secondary to rhabdomyolysis Rule out shocked liver Substance abuse Sepsis Plan/Recommendation Monitoring Supportive treatment ICU care Follow-up lab EEG Consider MRI brain or follow-up CT head Stabilize vitals/pressor drips Recreational support/vent management Oxygen Folic acid supplementation Thiamine supplementation IV antibiotics As above, the other systems are negative More recommendation per clinical course Progress: Guarded Critical care time spent 45 minutes This medical document was created using an electronic medical record system with Bench dictation system. Although this document has been carefully reviewed, there may still be some phonetic and typographical errors. These areas are purely typographical due to imperfections of the software programs, and do not reflect any compromise in the patient's medical care. Plan discussed with: GABRIELLE Davis MD Jun 03, 2025 09:30
[2025-06-03] MEDS: INSULIN LANTUS (GLARGINE) 1 /0.01ml (100units/ml) SC SCH (10:00)
--- NOTE | 2025-06-03 10:26 | DVHCONRES ---
Date Seen: Jun 03, 2025 Resident Creating Document: KRIS SHER RESIDENT Referring Physician ART VACA History of Present Illness Ms Ramey is a 34-year-old female who was BIBA as she was found unconscious and unresponsive by her family. History taking was completed with the help of chart review. At the time of arrival of EMS, patient respiratory rate was 4, patient was hypotensive, Narcan was given which provided brief response. On arrival, patient was experiencing low-grade fever, hypotensive, tachycardic and she was intubated subsequently. White blood cell count 16 downtrending to 8. ABG showed pH 6.8, increasing to 7 Patient seen and examined at the bedside. Urine output only 100 cc of dark urine. 2 bicarb 50 mEq given. Repeat BMP ordered. Lactic acid downtrending. Follow up with CK. Allergies: Coded Allergies: NO KNOWN ALLERGIES (Unverified , 04/27/12) Home Meds No Active Prescriptions or Reported Meds Current Medications Current Medications Medications (Trade) Dose Ordered Sig/Renny Route PRN Reason Start Time Stop Time Status Last Admin Midazolam HCl 50 ml @ 1 mls/hr Q24H IV 06/02/25 21:00 06/02/25 21:35 Fentanyl Citrate 250 ml @ 2.5 mls/hr Q24H IV 06/02/25 21:00 Norepinephrine Bitartrate 250 ml @ 3.75 mls/hr Q24H IV 06/02/25 21:15 06/03/25 07:53 Calcium Gluconate/ Sodium Chloride 50 ml @ 100 mls/hr Q30M IV 06/02/25 22:30 06/02/25 23:29 DC 06/02/25 23:00 Calcium Gluconate/ Sodium Chloride 50 ml @ 100 mls/hr Q30M IV 06/02/25 23:45 06/03/25 00:44 DC 06/03/25 00:15 Sodium Chloride 1,000 ml @ 500 mls/hr Q2H IV 06/03/25 00:00 06/03/25 03:59 DC 06/03/25 02:00 Sodium Chloride 1,000 ml @ 250 mls/hr Q4H IV 06/03/25 04:00 06/03/25 05:59 DC 06/03/25 04:16 Sodium Chloride 1,000 ml @ 150 mls/hr Q6H40M IV 06/03/25 06:00 06/03/25 07:30 Insulin Human (Reg)/Sodium Chloride 100 ml @ 0.5 mls/hr Q24H IV 06/03/25 00:00 06/03/25 10:06 DC 06/03/25 01:20 Dextrose 50 ml UD PRN IV SEE CURRENT ALGORITHM or SCALE 06/03/25 00:00 Diagnostic Test (Pha) (Accu-Chek Comfort Curve T) 1 strip Q90MIN 06/03/25 00:00 06/03/25 10:06 DC 06/03/25 06:19 Insulin Glargine (Lantus) 15 units DAILY SC 06/03/25 10:00 Vasopressin 20 units/Sodium Chloride 100 ml @ 9 mls/hr Q11H7M IV 06/03/25 02:10 06/03/25 10:18 Vancomycin HCl 0 ml @ 0 mls/hr UD IV 06/03/25 05:00 Piperacillin Sod/ Tazobactam Sod 100 ml @ 25 mls/hr Q8HR IV 06/03/25 06:00 06/03/25 06:19 Albuterol (Ventolin Medneb) 2.5 mg Q6HPRN PRN NEB SHORTNESS OF BREATH 06/03/25 05:00 Diagnostic Test (Pha) (Accu-Chek Comfort Curve T) 1 strip IQ4HR 06/03/25 08:00 06/03/25 08:00 Insulin Human Regular (InsuLIN R) IQ4HR SC 06/03/25 08:00 Dextrose 50 ml UD PRN IV Blood Sugar LESS THAN 60 06/03/25 05:00 Ondansetron HCl (Zofran) 4 mg Q4HP PRN IV NAUSEA / VOMITING 06/03/25 05:00 Enoxaparin Sodium (Lovenox) 30 mg DAILY SC 06/03/25 10:00 Acetaminophen (Tylenol Tablet) 650 mg Q6HP PRN PO PAIN SCALE 1-3 OR TEMP>100.4 06/03/25 05:00 Hold Nitroglycerin (Ntrostat Sublingual) 0.4 mg Q5MINP PRN SL FOR CHEST PAIN 06/03/25 05:00 Morphine Sulfate 2 mg Q30M PRN IV FOR CHEST PAIN 06/03/25 05:00 Calcium Gluconate/ Sodium Chloride 50 ml @ 100 mls/hr Q30M IV 06/03/25 07:00 06/03/25 07:59 DC 06/03/25 09:41 Magnesium Sulfate/ Dextrose 100 ml @ 100 mls/hr Q1HR IV 06/03/25 07:00 06/03/25 09:00 DC Sodium Chloride 1,000 ml @ 150 mls/hr Q6H40M IV 06/03/25 10:00 UNV Phenylephrine HCl 250 ml @ 30 mls/hr Q8H20M IV 06/03/25 10:15 UNV Review of Systems Could not be obtained as patient is intubated Vital Signs Vital Signs Date Time Temp Pulse Resp B/P (MAP) Pulse Ox O2 Delivery O2 Flow Rate FiO2 06/03/25 10:18 103/43 06/03/25 10:03 129 24 96 70 06/03/25 08:00 97.3 97.3 06/02/25 22:15 Mechanical Ventilator+ Physical Exam Young female patient lying in bed, intubated and mechanically ventilated General: Pallor, mucosa moist, afebrile Cardiovascular: Regular S1 and S2. No murmurs, gallops or rubs. No JVD eleva tion. No pedal edema Respiratory: Bilateral equal air entry, intubated and mechanically ventilated Abdomen: Soft, nontender, nondistended, normoactive bowel sounds, no rebound tenderness, no organomegaly, no masses Genitourinary: Alves seen draining 50 cc of dark urine Musculoskeletal: Lower extremity bruising seen more on the left lower extremity, left lower extremity soft Labs/Diagnostic Data Labs Test 06/03/25 08:53 06/03/25 08:39 06/03/25 08:36 06/03/25 07:55 Range/Units Blood Gas Specimen Type Venous Blood Gas Sample Site Vbg - n/a Blood Gas Patient Temperature 37.0 Arterial Blood Date Drawn [id number] Dougie Test N/a Venous Blood pH 7.093 *L 7.320-7.430 Venous Blood pCO2 at Patient Temp 47.4 38.0-54.0 mmHg Venous Blood pO2 at Patient Temp < 36.5 23.0-48.0 mmHg Venous Blood HCO3 14.2 L 22.0-29.0 mmol/L Venous Blood Base Excess -15.5 L -2.0-3.0 mmol/L Blood Gas Set Respiration Rate 24.0 Blood Gas Modality Vent - ac FiO2 % 80.0 Blood Gas Tidal Volume 450.0 Blood Gas PEEP or CPAP 5.0 Blood Gas Critical Value Read Back Yes Blood Gas Notified Whom Sukumar vaca Blood Gas Notified Time [id number] Blood Gas Notified By Yanna detail sergeant POC Glucose 101 70-106 mg/dl Vitamin D 25-Hydroxy 9.2 L 30.0-100 ng/mL Lactic Acid Level 2.6 *H 0.4-2.0 mmol/L Test 06/03/25 05:53 06/03/25 05:33 06/03/25 00:30 06/02/25 22:37 Range/Units Hemoglobin A1c 4.9 <5.7 % A1C White Blood Count 8.0 # 4.4-10.8 10^3/uL Red Blood Count 3.53 L 4.0-5.20 10^6/uL Hemoglobin 10.7 L 12.2-16.2 g/dL Hematocrit 33.3 L 36.0-46.0 % Mean Corpuscular Volume 94.4 # 80.0-100.0 fL Mean Corpuscular Hemoglobin 30.2 28.0-32.0 pg Mean Corpuscular Hemoglobin Concent 32.0 32.0-36.0 g/dL Red Cell Distribution Width 19.4 H 11.8-14.3 % Platelet Count 208 140-450 10^3/uL Mean Platelet Volume 8.4 6.9-10.8 fL Neutrophils (%) (Auto) 85.0 H 37.0-80.0 % Lymphocytes (%) (Auto) 12.1 10.0-50.0 % Monocytes (%) (Auto) 2.6 0.0-12.0 % Eosinophils (%) (Auto) 0.1 0.0-7.0 % Basophils (%) (Auto) 0.2 0.0-2.0 % Neutrophils # (Auto) 6.8 1.6-8.6 10 ^3/uL Lymphocytes # (Auto) 1.0 0.4-5.4 10 ^3/uL Monocytes # (Auto) 0.2 0-1.3 10 ^3/uL Eosinophils # (Auto) 0 0-0.8 10 ^3/uL Basophils # (Auto) 0 0-0.2 10 ^3/uL Nucleated Red Blood Cells 0.3 % Sodium Level 151 #H 136-145 mmol/L Potassium Level 4.6 # 3.5-5.1 mmol/L Chloride Level 114 H 98-107 mmol/L Carbon Dioxide Level 19 L 20-31 mmol/L Anion Gap 18 H 5-15 Blood Urea Nitrogen 23 9-23 mg/dL Creatinine 2.96 H 0.550-1.02 mg/dL Glomerular Filtration Rate Calc 21 >90 mL/min BUN/Creatinine Ratio 7.8 L 10.0-20.0 Serum Glucose 104 74-106 mg/dL Calcium Level 5.2 *L 8.7-10.4 mg/dL Phosphorus Level 8.2 H 2.4-5.1 mg/dL Magnesium Level 2.0 1.6-2.6 mg/dL Creatine Kinase > 35647 H 34-145 U/L Troponin I High Sensitivity 4005 *H </=34 ng/L Total Bilirubin 0.6 0.2-1.0 mg/dL Aspartate Amino Transferase (AST) > 6000 H 13-40 U/L Alanine Aminotransferase (ALT) 4005 H 7-40 U/L Alkaline Phosphatase 110 46-116 U/L Total Protein 6.6 5.7-8.2 g/dL Albumin 3.9 3.2-4.8 g/dL Plasma/Serum Blood Alcohol 3.0 <10 mg/dL Test 06/02/25 20:23 06/02/25 20:12 Range/Units Urine Color Colorless Yellow Urine Clarity Clear Clear Urine pH 6.0 5.0-9.0 Urine Specific [place] 1.002 1.001-1.035 Urine Protein Negative Negative Urine Ketones Negative Negative Urine Blood Negative Negative /uL Urine Nitrite Negative Negative Urine Bilirubin Negative Negative Urine Urobilinogen Normal Negative mg/dL Urine Leukocyte Esterase Negative Negative /uL Urine RBC 1 0 - 4 /hpf Urine Microscopic WBC 0-5 /HPF Urine Squamous Epithelial Cells Few <5 /hpf Urine Bacteria Few H None Seen /hpf Urine Glucose Normal Normal mg/dL Urine Test Negative Negative Urine Opiates Screen Neg NEGATIVE Urine Fentanyl Screen Pos NEGATIVE Urine Barbiturates Screen Neg NEGATIVE Urine Phencyclidine Screen Neg NEGATIVE Urine Amphetamines Screen Neg NEGATIVE Urine Benzodiazepines Screen Neg NEGATIVE Urine Cocaine Screen Neg NEGATIVE Urine Cannabinoids Screen Pos NEGATIVE B-Type Natriuretic Peptide 95.14 0-100 pg/mL Lipase 29 12-53 U/L Microbiology Date/Time Source Procedure Growth Status 06/02/25 20:23 Voided Urine Urine Culture - Preliminary Resulted Assessment Severe rhabdomyolysis ? Septic shock requiring IV pressor support Acute kidney injury likely prerenal versus ATN secondary to above-baseline unknown Transaminitis secondary to above NSTEMI Hypocalcemia Hyperkalemia Anion gap metabolic acidosis Lactic acidosis Anemia likely normocytic Vitamin-D deficiency Polysubstance use dependence Chest x-ray: Question a small/nodular opacity in the left midlung. Lungs are otherwise grossly clear. No pneumothorax. Received 5 L IV normal saline bolus Plan: Continue aggressive IV fluid resuscitation,contineu half NS 150cc/hr. Sosm ordered. Patient may require hemodialysis if urine output does not improve in the next 48 hours. Closely monitor lower extremity and soft tissue for swelling, rigidity and tenderness given likelihood of compartment syndrome after fluid resuscitation Ordered bicarb 50 mEq 2 doses given pH 7.093 Follow up with repeat CK level, urine myoglobin IV antibiotic and IV pressor per primary team Strict I&Os We will continue to follow up Plan discussed with patient's father, nurse at bedside in which all questions have been answered Case discussed with Dr. Lopez Plan discussed with: Other (Family, nurse) ADDENDUM ADDENDUM Seen at bedside with resident in the ER Briefly 34-year-old female with history of substance abuse was found unresponsive and was brought to the hospital diagnosed with severe rhabdomyolysis which resulted in the acute tubular necrosis and kidney injury. Patient is status post aggressive IV fluids KRIS SHER Jun 03, 2025 10:26 HALLIE LOPEZ MD Jun 05, 2025 14:57
[2025-06-03] MEDS: ENOXAPARIN SOD 30 MG/0.3 ML SYRINGE SC SCH (10:27)
[2025-06-03] MEDS: PHENYLEPHRINE IV 250 ML IV SCH (10:52)
[2025-06-03] MEDS: SODIUM BICARB 8.4% 50Meq/50ml SYR Vial IV ONE ×2 (10:52→18:47)
[2025-06-03 11:09] LABS: INR 1.52 (0.9-1.15); Prothrombin Time 15.5 sec (9.3-11.8)
[2025-06-03 11:32] LABS: Potassium 5.1 mmol/L (3.5-5.1)
[2025-06-03 11:33] LABS: Anion Gap 21 (5-15)
[2025-06-03 11:37] LABS: Calcium 6.3 mg/dL (8.7-10.4); Carbon Dioxide 15 mmol/L (20-31); Chloride 114 mmol/L (98-107); Sodium 150 mmol/L (136-145)
[2025-06-03 11:38] LABS: BUN/Creatinine Ratio 7.4 (10.0-20.0); Blood Urea Nitrogen 23 mg/dL (9-23); Glucose 92 mg/dL (74-106)
[2025-06-03 11:39] LABS: Magnesium 2.1 mg/dL (1.6-2.6)
[2025-06-03] MEDS: CALCIUM GLUC 1,000mg/50ml-NS 50 ML IV ONE (11:54)
--- NOTE | 2025-06-03 12:32 | DVH ---
INDICATION: INTUBATED TECHNIQUE: Frontal view of the chest. COMPARISON: XY CHEST PORTABLE on DOS: 06/02/25 FINDINGS: ET Tube unchanged. Nasogastric tube tip in the stomach. The heart and mediastinal contours are gross ly unremarkable. There is no evidence of pleural disease. The lungs are clear. The bony structure s of the chest are intact without fracture. IMPRESSION: 1. Endotracheal tube and nasogastric tube are unchanged. Stable mild pulmonary edema.
[2025-06-03] MEDS: THIAMINE 100mg/ml INJ (200mg/2ml VIAL) IV ONE (12:37)
--- NOTE | 2025-06-03 12:39 | DVHCONRES ---
Date Seen: Jun 03, 2025 Resident Creating Document: MARIANO ABBASI RESDIENT History of Present Illness 34-year-old female with past medical history of anxiety and alcohol use disorder brought to the hospital due to altered mental status. Per patient's father at the bedside, she was found unconscious on the floor. The last time the patient was seen alert was 12 hours back. Per patient's father, she has been recently under high stress due to break-up with her boyfriend, and been using alcohol and marijuana. PMHx: anxiety and alcohol use disorder Social history: Drink alcohol, smokes marijuana, lives with the father at home Home medication: Does not take any medicine Allergic history: No known allergy Patient seen and examined at the bedside. Patient is sedated and on mechanical ventilation. History taken from father at the bedside. Allergies: Coded Allergies: NO KNOWN ALLERGIES (Unverified , 04/27/12) Home Meds No Active Prescriptions or Reported Meds Current Medications Current Medications Medications (Trade) Dose Ordered Sig/Renny Route PRN Reason Start Time Stop Time Status Last Admin Midazolam HCl 50 ml @ 1 mls/hr Q24H IV 06/02/25 21:00 06/03/25 11:46 Fentanyl Citrate 250 ml @ 2.5 mls/hr Q24H IV 06/02/25 21:00 Norepinephrine Bitartrate 250 ml @ 3.75 mls/hr Q24H IV 06/02/25 21:15 06/03/25 11:46 Calcium Gluconate/ Sodium Chloride 50 ml @ 100 mls/hr Q30M IV 06/02/25 22:30 06/02/25 23:29 DC 06/02/25 23:00 Calcium Gluconate/ Sodium Chloride 50 ml @ 100 mls/hr Q30M IV 06/02/25 23:45 06/03/25 00:44 DC 06/03/25 00:15 Sodium Chloride 1,000 ml @ 500 mls/hr Q2H IV 06/03/25 00:00 06/03/25 03:59 DC 06/03/25 02:00 Sodium Chloride 1,000 ml @ 250 mls/hr Q4H IV 06/03/25 04:00 06/03/25 05:59 DC 06/03/25 04:16 Sodium Chloride 1,000 ml @ 150 mls/hr Q6H40M IV 06/03/25 06:00 06/03/25 07:30 Insulin Human (Reg)/Sodium Chloride 100 ml @ 0.5 mls/hr Q24H IV 06/03/25 00:00 06/03/25 10:06 DC 06/03/25 01:20 Dextrose 50 ml UD PRN IV SEE CURRENT ALGORITHM or SCALE 06/03/25 00:00 Diagnostic Test (Pha) (Accu-Chek Comfort Curve T) 1 strip Q90MIN 06/03/25 00:00 06/03/25 10:06 DC 06/03/25 06:19 Insulin Glargine (Lantus) 15 units DAILY SC 06/03/25 10:00 Vasopressin 20 units/Sodium Chloride 100 ml @ 9 mls/hr Q11H7M IV 06/03/25 02:10 06/03/25 10:18 Vancomycin HCl 0 ml @ 0 mls/hr UD IV 06/03/25 05:00 Piperacillin Sod/ Tazobactam Sod 100 ml @ 25 mls/hr Q8HR IV 06/03/25 06:00 06/03/25 06:19 Albuterol (Ventolin Medneb) 2.5 mg Q6HPRN PRN NEB SHORTNESS OF BREATH 06/03/25 05:00 Diagnostic Test (Pha) (Accu-Chek Comfort Curve T) 1 strip IQ4HR 06/03/25 08:00 06/03/25 08:00 Insulin Human Regular (InsuLIN R) IQ4HR SC 06/03/25 08:00 Dextrose 50 ml UD PRN IV Blood Sugar LESS THAN 60 06/03/25 05:00 Ondansetron HCl (Zofran) 4 mg Q4HP PRN IV NAUSEA / VOMITING 06/03/25 05:00 Enoxaparin Sodium (Lovenox) 30 mg DAILY SC 06/03/25 10:00 06/03/25 10:27 Acetaminophen (Tylenol Tablet) 650 mg Q6HP PRN PO PAIN SCALE 1-3 OR TEMP>100.4 06/03/25 05:00 Hold Nitroglycerin (Ntrostat Sublingual) 0.4 mg Q5MINP PRN SL FOR CHEST PAIN 06/03/25 05:00 Morphine Sulfate 2 mg Q30M PRN IV FOR CHEST PAIN 06/03/25 05:00 Calcium Gluconate/ Sodium Chloride 50 ml @ 100 mls/hr Q30M IV 06/03/25 07:00 06/03/25 07:59 DC 06/03/25 09:41 Magnesium Sulfate/ Dextrose 100 ml @ 100 mls/hr Q1HR IV 06/03/25 07:00 06/03/25 09:00 DC Sodium Chloride 1,000 ml @ 150 mls/hr Q6H40M IV 06/03/25 10:00 06/03/25 08:30 Phenylephrine HCl 250 ml @ 30 mls/hr Q8H20M IV 06/03/25 10:15 06/03/25 10:52 Thiamine HCl 100 mg DAILY IV 06/04/25 10:00 Folic Acid 1 mg/ Dextrose 50.2 ml @ 200.8 mls/ hr DAILY INJ 06/04/25 10:00 Vital Signs Vital Signs Date Time Temp Pulse Resp B/P (MAP) Pulse Ox O2 Delivery O2 Flow Rate FiO2 06/03/25 11:46 92/51 06/03/25 11:30 119 24 99 06/03/25 10:03 70 06/03/25 08:00 97.3 97.3 06/02/25 22:15 Mechanical Ventilator+ Physical Exam General: RASS -3, afebrile, mucosae are moist Cardiovascular: Normal S1 and S2. No murmurs, gallops or rubs Respiratory: Mechanically assisted ventilation, equal bilateral airway entree. Clear lung sounds on auscultation Abdomen: Soft, nontender, no organomegaly, normal bowel sounds MSK/skin: Mobilization of limbs cannot be evaluated. Skin is dry and warm. Neurological: Orientation cannot be assessed. No apparent motor no sensitive deficits. Pupils are constricted Labs/Diagnostic Data Labs Test 06/03/25 10:32 06/03/25 10:30 06/03/25 10:29 06/03/25 08:53 Range/Units POC Glucose 101 70-106 mg/dl Prothrombin Time 15.5 H 9.3-11.8 sec Prothrombin Time INR 1.52 H 0.9-1.15 Sodium Level 150 H 136-145 mmol/L Potassium Level 5.1 3.5-5.1 mmol/L Chloride Level 114 H 98-107 mmol/L Carbon Dioxide Level 15 L 20-31 mmol/L Anion Gap 21 H 5-15 Blood Urea Nitrogen 23 9-23 mg/dL Creatinine 3.12 H 0.550-1.02 mg/dL Glomerular Filtration Rate Calc 19 >90 mL/min BUN/Creatinine Ratio 7.4 L 10.0-20.0 Serum Glucose 92 74-106 mg/dL Uric Acid 14.1 H 3.1-7.8 mg/dL Calcium Level 6.3 L 8.7-10.4 mg/dL Phosphorus Level 8.2 H 2.4-5.1 mg/dL Magnesium Level 2.1 1.6-2.6 mg/dL Creatine Kinase > 68114 H 34-145 U/L Random Vancomycin Level 22.7 H 5-10 ug/mL Blood Gas Specimen Type Venous Blood Gas Sample Site Vbg - n/a Blood Gas Patient Temperature 37.0 Arterial Blood Date Drawn [id number] Dougie Test N/a Venous Blood pH 7.093 *L 7.320-7.430 Venous Blood pCO2 at Patient Temp 47.4 38.0-54.0 mmHg Venous Blood pO2 at Patient Temp < 36.5 23.0-48.0 mmHg Venous Blood HCO3 14.2 L 22.0-29.0 mmol/L Venous Blood Base Excess -15.5 L -2.0-3.0 mmol/L Blood Gas Set Respiration Rate 24.0 Blood Gas Modality Vent - ac FiO2 % 80.0 Blood Gas Tidal Volume 450.0 Blood Gas PEEP or CPAP 5.0 Blood Gas Critical Value Read Back Yes Blood Gas Notified Whom Sukumar bahena Blood Gas Notified Time [id number] Blood Gas Notified By Yanna wedding planner Test 06/03/25 08:36 06/03/25 07:55 06/03/25 05:53 06/03/25 05:33 Range/Units Vitamin D 25-Hydroxy 9.2 L 30.0-100 ng/mL Lactic Acid Level 2.6 *H 0.4-2.0 mmol/L Hemoglobin A1c 4.9 <5.7 % A1C White Blood Count 8.0 # 4.4-10.8 10^3/uL Red Blood Count 3.53 L 4.0-5.20 10^6/uL Hemoglobin 10.7 L 12.2-16.2 g/dL Hematocrit 33.3 L 36.0-46.0 % Mean Corpuscular Volume 94.4 # 80.0-100.0 fL Mean Corpuscular Hemoglobin 30.2 28.0-32.0 pg Mean Corpuscular Hemoglobin Concent 32.0 32.0-36.0 g/dL Red Cell Distribution Width 19.4 H 11.8-14.3 % Platelet Count 208 140-450 10^3/uL Mean Platelet Volume 8.4 6.9-10.8 fL Neutrophils (%) (Auto) 85.0 H 37.0-80.0 % Lymphocytes (%) (Auto) 12.1 10.0-50.0 % Monocytes (%) (Auto) 2.6 0.0-12.0 % Eosinophils (%) (Auto) 0.1 0.0-7.0 % Basophils (%) (Auto) 0.2 0.0-2.0 % Neutrophils # (Auto) 6.8 1.6-8.6 10 ^3/uL Lymphocytes # (Auto) 1.0 0.4-5.4 10 ^3/uL Monocytes # (Auto) 0.2 0-1.3 10 ^3/uL Eosinophils # (Auto) 0 0-0.8 10 ^3/uL Basophils # (Auto) 0 0-0.2 10 ^3/uL Nucleated Red Blood Cells 0.3 % Parathyroid Hormone (Intact) 617.6 H 18.4-80.1 pg/mL Test 06/03/25 00:30 06/02/25 22:37 06/02/25 20:23 06/02/25 20:12 Range/Units Troponin I High Sensitivity 4005 *H </=34 ng/L Total Bilirubin 0.6 0.2-1.0 mg/dL Aspartate Amino Transferase (AST) > 6000 H 13-40 U/L Alanine Aminotransferase (ALT) 4005 H 7-40 U/L Alkaline Phosphatase 110 46-116 U/L Total Protein 6.6 5.7-8.2 g/dL Albumin 3.9 3.2-4.8 g/dL Urine Color Colorless Yellow Urine Clarity Clear Clear Urine pH 6.0 5.0-9.0 Urine Specific [place] 1.002 1.001-1.035 Urine Protein Negative Negative Urine Ketones Negative Negative Urine Blood Negative Negative /uL Urine Nitrite Negative Negative Urine Bilirubin Negative Negative Urine Urobilinogen Normal Negative mg/dL Urine Leukocyte Esterase Negative Negative /uL Urine RBC 1 0 - 4 /hpf Urine Microscopic WBC 0-5 /HPF Urine Squamous Epithelial Cells Few <5 /hpf Urine Bacteria Few H None Seen /hpf Urine Glucose Normal Normal mg/dL Urine Test Negative Negative Urine Opiates Screen Neg NEGATIVE Urine Fentanyl Screen Pos NEGATIVE Urine Barbiturates Screen Neg NEGATIVE Urine Phencyclidine Screen Neg NEGATIVE Urine Amphetamines Screen Neg NEGATIVE Urine Benzodiazepines Screen Neg NEGATIVE Urine Cocaine Screen Neg NEGATIVE Urine Cannabinoids Screen Pos NEGATIVE B-Type Natriuretic Peptide 95.14 0-100 pg/mL Lipase 29 12-53 U/L Microbiology Date/Time Source Procedure Growth Status 06/02/25 20:23 Voided Urine Urine Culture - Preliminary Resulted Assessment Acute toxic/metabolic encephalopathy, likely due to alcohol use disorder/sepsis/fentanyl ? Septic shock likely due to aspiration pneumonia Rhabdomyolysis NSTEMI, likely type 2 due to above Shock liver ? Aspiration pneumonia Hypokalemia Hypocalcemia Hyperphosphatemia EKGs shows sinus tachycardia with no significant ST or T-wave changes Trop I is raised at 4000 Plan/recommendation * Check echocardiogram * Vasopressors for hemodynamic support * Patient needs liberal fluid, if kidney status permits * We follow up with the patient Thank you for giving us the opportunity to take care of your patient. Please call back if you have any questions/concerns we would Plan discussed with: Patient, Other (RN) MARIANO ABBASI Jun 03, 2025 12:39
--- NOTE | 2025-06-03 13:27 | DVHSR ---
APPROVED REPORT EXAM: Two-dimensional and M-mode echocardiogram with Doppler and color Doppler. Blood Pressure: 95/45 mmHg INDICATION EF RISK FACTORS Height: 5'4", Weight: 114 DIMENSIONS LVDd4.1 (3.8-5.7cm)LA (2D)3.3 (1.9-4.0cm)Aortic Root2.6 (2.0-3.7cm) LVDs2.8 (2.5-4.0cm)LA (MM) (1.9-4.0cm)Aortic Cusp Exc1.6 (1.5-2.0cm) EF (%) 60.0 (55-70%)Rt. Atrium4.7 (1.9-4.0cm)Asc. Aorta cm IVSd0.6 (0.7-1.1cm)RV (D)2.5 (1.8-2.4cm) PWd0.8 (0.7-1.1cm) Mitral Valve MitralMitral Stenosis E wave0.89m/sMV Mean GR.mmHg E/A ratio0.02D MVAcm2 Aortic Valve Aortic ValveAortic Stenosis V11.38m/Jolie Mean GR.6mmHg V21.58m/Jolie Peak GR.10mmHg LVOT Diameter1.7 (1.8-2.4cm)Doppler AVA1.98cm2 Pulmonic Valve V21.26m/s Tricuspid Valve TR Velocity2.09m/s [id number] Conclusion lvef 65% normal rv and lv function normal atria no severe valve abnormaliites noted
--- NOTE | 2025-06-03 13:43 | DVHPNRES ---
Progress Note Date Seen: Jun 03, 2025 Resident Creating Document: GLORY ZAMORA RESIDENT Medical Necessity Reason Pt with a Central, PICC or Fol: Yes The following are medically ne: Central Line, Alves Catheter Subjective Review of Systems Patient is a 34-year-old female with past medical history of anxiety, who was brought in after being found unresponsive by her father. According to the father at bedside, on 06/02/2025 at 7:00 p.m. he found the patient down on her back which is what prompted him to call the EMS, per EMS patient was noted to have a respiratory rate of 4, blood sugar 21, foaming at the mouth along with vomitus around her, she was given 4 of Narcan to which she responded briefly. According to the father, he last saw patient on 06/01/2025 around 3:00 p.m.. On Tuesday06/02/2025 he notes hearing patient moaning and groaning around 9:00 am., same day at 3:00 p.m. he knocked at her door to which there was no response, later that day around 7:00 p.m. he unlocked the door in went inside and found the patient on the floor unconscious on her back. Accurate past medical history or review of systems could not be completed due to patient being sedated and mechanically ventilated. Past surgical history: TMJ surgery in 2023 Social & Personal history: Patient lives with her father. Per father patient smokes heavily, also binge drinks and smokes marijuana wax. Patient is not , has 2 kids 7 in 11 years old. Objective vital signs Vital Sign Date Time Temp Pulse Resp B/P (MAP) Pulse Ox O2 Delivery O2 Flow Rate FiO2 06/03/25 12:46 116 24 97/50 (66) 93 75 06/03/25 08:00 Mechanical Ventilator+ 06/03/25 08:00 97.3 97.3 Total Intake and Output 06/02/25 06/02/25 06/03/25 14:59 22:59 06:59 Intake Total 1084.3750 ml 4154 ml Balance 1084.3750 ml 4154 ml medications Current Medications Medications Dose Ordered Sig/Renny Route Start Time Stop Time Status Last Admin Dose Admin Midazolam HCl 50 ml @ 1 mls/hr Q24H IV 06/02/25 21:00 06/03/25 12:58 15 MLS/HR Fentanyl Citrate 250 ml @ 2.5 mls/hr Q24H IV 06/02/25 21:00 Norepinephrine Bitartrate 250 ml @ 3.75 mls/hr Q24H IV 06/02/25 21:15 06/03/25 11:46 56.25 MLS/HR Sodium Chloride 1,000 ml @ 150 mls/hr Q6H40M IV 06/03/25 06:00 06/03/25 07:30 150 MLS/HR Dextrose 50 ml UD PRN IV 06/03/25 00:00 Insulin Glargine 15 units DAILY SC 06/03/25 10:00 Vasopressin 20 units/Sodium Chloride 100 ml @ 9 mls/hr Q11H7M IV 06/03/25 02:10 06/03/25 10:18 9 MLS/HR Vancomycin HCl 0 ml @ 0 mls/hr UD IV 06/03/25 05:00 Piperacillin Sod/ Tazobactam Sod 100 ml @ 25 mls/hr Q8HR IV 06/03/25 06:00 06/03/25 06:19 25 MLS/HR Albuterol 2.5 mg Q6HPRN PRN NEB 06/03/25 05:00 Diagnostic Test (Pha) 1 strip IQ4HR 06/03/25 08:00 06/03/25 12:51 1 STRIP Insulin Human Regular IQ4HR SC 06/03/25 08:00 Dextrose 50 ml UD PRN IV 06/03/25 05:00 Ondansetron HCl 4 mg Q4HP PRN IV 06/03/25 05:00 Enoxaparin Sodium 30 mg DAILY SC 06/03/25 10:00 06/03/25 10:27 30 MG Acetaminophen 650 mg Q6HP PRN PO 06/03/25 05:00 Hold Nitroglycerin 0.4 mg Q5MINP PRN SL 06/03/25 05:00 Morphine Sulfate 2 mg Q30M PRN IV 06/03/25 05:00 Sodium Chloride 1,000 ml @ 150 mls/hr Q6H40M IV 06/03/25 10:00 06/03/25 08:30 150 MLS/HR Phenylephrine HCl 250 ml @ 30 mls/hr Q8H20M IV 06/03/25 10:15 06/03/25 10:52 30 MLS/HR Thiamine HCl 100 mg DAILY IV 06/04/25 10:00 Folic Acid 1 mg/ Dextrose 50.2 ml @ 200.8 mls/ hr DAILY INJ 06/04/25 10:00 Examination General Appearance: Sedated, intubated and mechanically ventilated Head Exam: Constricted and minimally reactive pupils Pulmonary/Respiratory: Coarse bilateral breath sounds Cardiovascular/Chest: Regular rate and rhythm. Peripheral Pulses: 2+ Radial (R). 2+ Radial (L). 2+ Pedal (R). 2+ Pedal (L) Abdominal Exam: Decreased bowel sounds. Soft. normal abdomen, no visible veins, Nontender. No hepatospenomegaly. No masses Ankle Exam: Negative ankle edema Lower extremities: Negative lower extremity edema Skin Exam: Cool peripheries. Bruises noted on anterior shins. laboratory and microbiology Laboratory Tests 06/03/25 10:30 06/03/25 05:33 Test 06/03/25 10:30 Range/Units Serum Glucose 92 74-106 mg/dL Microbiology Date/Time Source Procedure Growth Status 06/02/25 20:23 Voided Urine Urine Culture - Preliminary Resulted Labs and/or images reviewed: Labs reviewed by me, Image(s) reviewed by me Problem List/Assessment/Plan Problem List/Assessment/Plan Neurology # acute toxic encephalopathy likely due to fentanyl vs alcohol vs other substance overdose # questionable seizure? - head CT: No acute intracranial abnormality. - intubated, sedated with Versed, fentanyl - neurology on board - UDS + for fentanyl and cannabis # Sedated Cardiovascular # NSTEMI type 2 due to shock # Septic shock - serial trops 2381, 2967, 4005 - on norepinephrine 30 - vasopressin 0.03 mcg - neosyn 40 - cardiology on board Respiratory # Ventilator -intubated # Acute hypoxic respiratory failure # probable aspiration pneumonia - IV vancomycin - IV Zosyn GI # shock liver # Peptic ulcer prophylaxis -Pantoprazole 40 mg IV daily - IV fluids D5W with 1/2 NS @ 125cc/hour f NS # Alves catheter Nephrology # rhabdomyolysis due to prolonged immobilization? # HERO due to above # hyperkalemia due to above # hyperphosphatemia due to above # hypocalcemia due to above - CK >05874 - s/p 4 bicarb pushes - repleted calcium - nephrology on board Infectious disease # aspiration pneumonia # sepsis due to above # septic shock due to above - IV vancomycin, IV Zosyn - Levophed, vasopressin, Nakul-Synephrine Hem/onc # anemia, likely chronic - monitor Endocrine # vitamin-D deficiency Psychiatry # substance use disorder # alcohol use disorder DVT prophylaxis Lovenox 30mg SC daily Nutrition - NPO Lines Right femoral line placed on 06/02/2025 Left arterial line placed on 06/03/2025 Drips during mech ventilation Versed 10 Fentanyl 50 Critical care time 83 minutes excluding procedure. Code status discussed greater than 20 minutes: Full CODE STATUS. Father at bedside explained about the condition of the patient Plan discussed with Dr. Holbrook Plan discussed with: Other (RN, patient's father at bedside) My Orders My Orders Orders - GLORY ZAMORA Procedure Category Date Status Time Covid19 Antigen Parvin LAB 06/03/25 Logged Rapid Influenza A&B LAB 06/03/25 Logged 10:18 Chest Portable XY 06/03/25 Resulted 11:28 Date of Service: Jun 03, 2025 Billing Provider: HERNAN HOLBROOK MD Common Visit Codes: 98259-[id number] CARE 30-74 MIN, [id number] CARE-EACH +30MIN GLORY ZAMORA Jun 03, 2025 13:43 HERNAN HOLBROOK MD Jun 04, 2025 16:05
[2025-06-03] MEDS: FOLIC ACID 1 MG in D5W 5% 50 ML INJ ONE (13:53)
[2025-06-03 14:23] LABS: Triglycerides 158 mg/dL (< 150)
[2025-06-03 14:24] LABS: Cholesterol 99 mg/dL (< 200); HDL Cholesterol 39 mg/dL (40-59)
[2025-06-03] MEDS: BUMETANIDE 2.5mg/10ml (0.25 mg/ml) INJ IV ONE (16:28)
[2025-06-03] MEDS: D5W/SOD CHL 0.45% 1,000 ML IV SCH (17:30)
[2025-06-03 17:35] LABS: Base Excess -10.6 mmol/L (-2.0-3.0)
[2025-06-03] MEDS: DEXTROSE (50%) 50ML SYRG IV PRN (17:43)
[2025-06-03] MEDS: PANTOPRAZOLE 40 MG/10 ML VIAL INJ IV ONE (18:03)
[2025-06-03] MEDS: ALLOPURINOL 100 MG TAB GT ONE (18:47)
[2025-06-03 19:10] LABS: Protein, Urine 570.2 mg/dL (1-14); Urine Protein, UAD 2+ (Negative); Urine WBC Clumps PRESENT /hpf (None Seen)
[2025-06-03 19:40] LABS: Anion Gap 16 (5-15)
[2025-06-03 19:45] LABS: BUN/Creatinine Ratio 9.3 (10.0-20.0)
[2025-06-03 19:53] LABS: Blood Urea Nitrogen 34 mg/dL (9-23); Carbon Dioxide 19 mmol/L (20-31); Chloride 114 mmol/L (98-107); Glucose 174 mg/dL (74-106); Potassium 5.3 mmol/L (3.5-5.1); Sodium 149 mmol/L (136-145)
[2025-06-03 19:54] LABS: Calcium 5.5 mg/dL (8.7-10.4)
[2025-06-03 20:04] LABS: COVID19 ANTIGEN SOFIA FIA NEGATIVE (NEGATIVE)
[2025-06-03 21:13] LABS: Base Excess -9.8 mmol/L (-2.0-3.0)
[2025-06-04] VITALS (112 sets, daily range): BP systolic 82–127; BP diastolic 40–80; PULSE 96–115; RESP 12–26; TEMP 33.3; O2SAT 97–100
--- NOTE | 2025-06-04 00:43 | DVH ---
CHEST RADIOGRAPH Indication: pna Technique: Single frontal view of the chest was obtained COMPARISON: XY CHEST PORTABLE on DOS: 06/03/25, XY CHEST PORTABLE on DOS: 06/02/25 FINDINGS: Lines and Tubes: Unchanged. Lungs: Stable right basilar pulmonary airspace disease and small pleural effusion. No pneumothorax. Cardiomediastinal contours: Unremarkable Bones: Unremarkable IMPRESSION: 1. Stable appearing right basilar pulmonary airspace disease and small right pleural effusion. 2. Lines and tubes unchanged.
[2025-06-04 04:06] LABS: Hematocrit 30.7 % (36.0-46.0); Hemoglobin 9.7 g/dL (12.2-16.2); Mean Corpuscular Hemoglobin 29.4 pg (28.0-32.0); Mean Corpuscular Volume 93.0 fL (80.0-100.0); Nucleated Red Blood Cells % 0.1 %
[2025-06-04 04:36] LABS: Alkaline Phosphatase 86 U/L (46-116); Anion Gap 20 (5-15); BUN/Creatinine Ratio 8.5 (10.0-20.0)
[2025-06-04 04:41] LABS: Albumin 2.5 g/dL (3.2-4.8); Bilirubin, Total 1.4 mg/dL (0.2-1.0); Blood Urea Nitrogen 36 mg/dL (9-23); Carbon Dioxide 16 mmol/L (20-31); Chloride 110 mmol/L (98-107); Glucose 157 mg/dL (74-106); Potassium 5.1 mmol/L (3.5-5.1); Sodium 146 mmol/L (136-145); Total Protein 4.5 g/dL (5.7-8.2)
[2025-06-04 04:47] LABS: Calcium 5.7 mg/dL (8.7-10.4)
[2025-06-04 04:49] LABS: Alanine Aminotransferase 2863 U/L (7-40)
[2025-06-04] MEDS: CALCIUM GLUC 1,000mg/50ml-NS 50 ML IV ONE (06:30)
[2025-06-04 07:41] LABS: Base Excess -10.6 mmol/L (-2.0-3.0)
[2025-06-04 09:03] LABS: Uric Acid 12.6 mg/dL (3.1-7.8)
[2025-06-04] MEDS: PANTOPRAZOLE 40 MG/10 ML VIAL INJ IV SCH (09:17)
[2025-06-04] MEDS: THIAMINE 100mg/ml INJ (200mg/2ml VIAL) IV SCH (09:17)
[2025-06-04 09:18] LABS: Creatine Kinase IFCC > 39000 U/L (34-145)
[2025-06-04] MEDS: FOLIC ACID 1 MG in D5W 5% 50 ML INJ SCH (09:41)
[2025-06-04 10:48] LABS: Lactic Acid w/Reflex 4.5 mmol/L (0.4-2.0)
[2025-06-04] MEDS: ROCURONIUM 10MG/ML 10ML VIAL IV ONE ×2 (10:51→12:07)
--- NOTE | 2025-06-04 11:05 | DVHPN2 ---
Progress Note - Dictate Date Seen: Jun 04, 2025 Medical Necessity Reason Pt with a Central, PICC or Fol: Yes The following are medically ne: Central Line, Alves Catheter Subjective Ms. Ramey is a 34 years old female with a history of anxiety, wax and possibly fentanyl abuse, she was admitted to the [facility] on 06/02/2025 with a chief company of altered mental status. I have seen and examined the patient, I have talked to her nurse and family member, she is intubated, sedated, Family is interested in rehab after she recovered Levo 18 mcg/minute, Versed 50 mg/hour UDS, 06/02/2025: Cannabinoids, fentanyl Plasma alcohol, 05/23/25: 3 Urinalysis, 06/02/2025: WBC:, urine leukocyte esterase: Negative WBC/HB/PLT/MCV, 06/02/2025: 16.3/10.6/324/103.4, 06/03/2025: 8/10.7/208/94.4 Na, 06/02/2025: 135, 139, 06/03/25: 151 K, 06/02/2025: 7.5, 7.6, 06/03/25: 406 HCO3, 06/02/2025: <10, 12, 06/03/2025: 19 Ca, 06/02/2025: 6 ft two, six, 06/03/2025: 5.2 Lactic acid, 06/02/2025: 11, 9.1, 06/03/2025: 5.1, 2.6 TBI/AST/ALT/AP, 06/02/2025: 0.6/>6000?4005/110 CK, 06/03/2025:>76882 Troponin I high sensitivity, 06/02/2025: 2381, 2267, 06/03/25: 4005 Chest x-ray, 06/02/2025: Endotracheal and enteric tubes are in satisfactory position. Question a small/nodular opacity in the left midlung. Lungs are otherwise grossly clear. No pneumothorax. Partially visualized gaseous distention of the stomach. CT head, 06/02/2025: No acute intracranial abnormality. vital signs Vital Sign Date Time Temp Pulse Resp B/P (MAP) Pulse Ox O2 Delivery O2 Flow Rate FiO2 06/04/25 10:30 99.1 108 16 91/56 (68) 100 210.4 111/65 (80) 06/04/25 10:00 30 06/04/25 10:00 Mechanical Ventilator+ 06/03/25 19:53 Total Intake and Output 06/03/25 06/03/25 06/04/25 15:00 23:00 07:00 Intake Total 3426.52 ml 1647.00 ml 2719.25 ml Output Total 50 ml 150 ml Balance 3426.52 ml 1597.00 ml 2569.25 ml medications Current Medications Medications Dose Ordered Sig/Renny Route Start Time Stop Time Status Last Admin Dose Admin Midazolam HCl 50 ml @ 1 mls/hr Q24H IV 06/02/25 21:00 06/04/25 10:30 15 MLS/HR Fentanyl Citrate 250 ml @ 2.5 mls/hr Q24H IV 06/02/25 21:00 Norepinephrine Bitartrate 250 ml @ 3.75 mls/hr Q24H IV 06/02/25 21:15 06/04/25 05:08 33.75 MLS/HR Dextrose 50 ml UD PRN IV 06/03/25 00:00 Cancel Vasopressin 20 units/Sodium Chloride 100 ml @ 9 mls/hr Q11H7M IV 06/03/25 02:10 06/03/25 10:18 9 MLS/HR Vancomycin HCl 0 ml @ 0 mls/hr UD IV 06/03/25 05:00 Piperacillin Sod/ Tazobactam Sod 100 ml @ 25 mls/hr Q8HR IV 06/03/25 06:00 06/04/25 05:09 25 MLS/HR Albuterol 2.5 mg Q6HPRN PRN NEB 06/03/25 05:00 Diagnostic Test (Pha) 1 strip IQ4HR 06/03/25 08:00 06/04/25 08:22 1 STRIP Insulin Human Regular IQ4HR SC 06/03/25 08:00 Dextrose 50 ml UD PRN IV 06/03/25 05:00 06/03/25 17:43 50 ML Enoxaparin Sodium 30 mg DAILY SC 06/03/25 10:00 06/04/25 09:18 30 MG Acetaminophen 650 mg Q6HP PRN PO 06/03/25 05:00 Hold Nitroglycerin 0.4 mg Q5MINP PRN SL 06/03/25 05:00 Morphine Sulfate 2 mg Q30M PRN IV 06/03/25 05:00 Phenylephrine HCl 250 ml @ 30 mls/hr Q8H20M IV 06/03/25 10:15 06/03/25 10:52 30 MLS/HR Thiamine HCl 100 mg DAILY IV 06/04/25 10:00 06/04/25 09:17 100 MG Folic Acid 1 mg/ Dextrose 50.2 ml @ 200.8 mls/ hr DAILY INJ 06/04/25 10:00 06/04/25 09:41 200.8 MLS/HR Pantoprazole Sodium 40 mg DAILY IV 06/04/25 10:00 06/04/25 09:17 40 MG Dextrose/Sodium Chloride 1,000 ml @ 125 mls/hr Q8H IV 06/03/25 17:30 06/04/25 09:17 125 MLS/HR objective The patient is well-nourished and well-developed with no distress. The patient is intubated MENTAL STATUS: Responds to painful stimuli CRANIAL NERVES: Pupils are equal, round and reactive.There are corneal reflexes and doll's eyes phenomenon. No signs of facial weakness. There are gagging or coughing reflexes SENSATION: Responses to pain stimuli. MOTOR: Normal tone in the upper and lower extremity. Normal muscle bulk. No fasciculations. No spontaneous movement. REFLEXES: Deep tendon reflexes are symmetrical. No pathological reflexes. CEREBELLAR/COORDINATION: Deferred GAIT/STATION: deferred. laboratory and microbiology Laboratory Tests 06/04/25 03:15 Test 06/04/25 03:15 Range/Units Serum Glucose 157 H 74-106 mg/dL Problem List Coma Fentanyl overdosing/toxic encephalopathy Hypoxic encephalopathy Hypoxic encephalopathy Acute respiratory failure secondary to fentanyl overdosing Hypoglycemia Rhabdomyolysis Elevated liver function tests Secondary to rhabdomyolysis Rule out shocked liver Substance abuse Sepsis Assessment/Plan Monitoring Supportive treatment ICU care Follow-up lab EEG Consider MRI brain or follow-up CT head Stabilize vitals/pressor drips Recreational support/vent management Oxygen Folic acid supplementation Thiamine supplementation IV antibiotics As above, the other systems are negative More recommendation per clinical course This medical document was created using an electronic medical record system with [employer] Prognosis Guarded Plan discussed with: Other Critical Care Time(min): 35 GABRIELLE ISIDRO MD Jun 04, 2025 11:05
[2025-06-04] MEDS ORDERED: LORazepam 2MG/ML-1ML VIAL IV PRN (11:15)
--- NOTE | 2025-06-04 11:47 | DVH ---
INDICATION: acute renal failure d/t rhabdo ckd hydronephrosis TECHNIQUE: Multiple real-time sonographic images of the kidneys and bladder were obtained. COMPARISON: None FINDINGS: The right kidney measures 9 cm in length, which is normal in size. There is increased echog enicity of the right kidney. No hydronephrosis. The left kidney measures 10 cm in length, which is normal in size. There is normal echogenicity of th e left kidney. No hydronephrosis. Incidental finding of small bilateral pleural effusions right greater than left. Small volume pelvic ascites. There Is a small right perinephric fluid collection. IMPRESSION: Incidental finding of small bilateral pleural effusions right greater than left. Small volume pelvic ascites. There Is a small right perinephric fluid collection.
[2025-06-04] MEDS: SODIUM CHL 0.9% 1000 ML BAG XX ONE (12:00)
[2025-06-04] MEDS: SODIUM BICARB 8.4% 50Meq/50ml SYR Vial IV ONE (12:02)
[2025-06-04] MEDS: PROPOFOL 0 ML IV ONE (12:06)
--- NOTE | 2025-06-04 12:21 | DVHNC2 ---
Procedure - Central Line Procedure Note Date and time: 06/04/2025 at 10:00 a.m. Indication: Dialysis Access Central Line Location: Left Internal Jugular Vein Procedure Choke Setter: Onesimo James Resident Attending Physician: MD John Consent: Consent was obtained from father prior to the procedure. Indications, risks and benefits were discussed prior to the procedure. Procedure Summary: A time out was performed. My hands were washed immediately prior to the procedure. I wore a surgical cap, mask with protective eyewear, full gown and sterile gloves throughout the procedure. The patient was placed in Trendelenburg position, with head turned 30 degrees away from the insertion site. The Left neck was prepped using chlorhexidine scrub and draped in sterile fashion using a three quarter sheet drape and sterile towels. Skin preparation was allowed to dry prior to skin puncture. Anatomic landmarks were identified. Using real-time ultrasound, with sterile probe cover and sterile gel, the Left Internal Jugular Vein was identified on ultrasound using the linear ultrasound probe in the t ransverse orientation. The carotid artery was identified and avoided utilizing color-flow. The Internal Jugular Vein was then placed in the center of the ultrasound field and compressed for patency. The introducer needle was inserted into the vein under direct ultrasound visualization, and a movement artifact was identified as the needle was advanced through the skin toward the vessel. A real-time hyperechoic signal revealed visualization of vascular needle entry into the lumen as blood was noted to flashback in the syringe. The needle was then held in place, the syringe was removed, and the guide wire was advanced through the needle. Direct visualization of the guide wire location within the vein was noted on ultrasound, indicating proper placement. The needle was then removed. A small incision was made at the skin surface with a scalpel, and a skin dilator was advanced over the guide wire. After appropriate dilation was obtained, the dilator was removed, and a double-lumen catheter was then advanced over the guide wire into proper position. The guide wire was removed and discarded. The ports were aspirated, which showed good blood return, and then carefully flushed with normal saline. The catheter was stabilized and sutured to the skin with 2-0 silk at two anchor points. A sterile op-site was placed over the catheter and biopatch. The patient tolerated the procedure without any hemodynamic compromise. Estimated blood loss: 5 ml Post-procedure chest x-ray: Shows proper positioning of the catheter for use. ONESIMO JAMES RESIDENT Jun 04, 2025 12:21
--- NOTE | 2025-06-04 12:24 | DVH ---
EXAM: XY CHEST XRAY 1 VIEW Indication: LIJ HD catheter position Technique: Single frontal view of the chest was obtained Comparison: XY CHEST PORTABLE on DOS: 06/04/25, XY CHEST PORTABLE on DOS: 06/03/25, XY CHEST PORTABLE o n DOS: 06/02/25 FINDINGS: Lines and Tubes: Enteric tube tip projects over the expected region of the stomach. Endotracheal tube projects approximately 2.8 cm above the ramu. Left dialysis catheter tip projects over the superio r vena cava. Lungs: Interstitial opacities. Pleura: No effusion. No pneumothorax. Cardiomediastinal contours: Unremarkable Bones: No acute osseous abnormality. IMPRESSION: Interval placement of left dialysis catheter tip projecting over the superior vena cava.
--- NOTE | 2025-06-04 13:22 | ECG ---
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
--- NOTE | 2025-06-04 13:48 | DVHPN2 ---
Progress Note Date Seen: Jun 04, 2025 Resident Creating Document: KRIS SHER RESIDENT Medical Necessity Reason Pt with a Central, PICC or Fol: Yes The following are medically ne: Central Line, Alves Catheter Subjective Review of Systems Ms Ramey is a 34-year-old female who was BIBA as she was found unconscious and unresponsive by her family. History taking was completed with the help of chart review. At the time of arrival of EMS, patient respiratory rate was 4, patient was hypotensive, Narcan was given which provided brief response. On arrival, patient was experiencing low-grade fever, hypotensive, tachycardic and she was intubated subsequently. White blood cell count 16 downtrending to 8. ABG showed pH 6.8, increasing to 7 06/03-Patient seen and examined at the bedside. Urine output only 100 cc of dark urine. 2 bicarb 50 mEq given. Repeat BMP ordered. Lactic acid downtrending. Follow up with CK. 06/04-patient seen, Frankie cath placed. Patient undergoing hemodialysis. Objective vital signs Vital Sign Date Time Temp Pulse Resp B/P (MAP) Pulse Ox O2 Delivery O2 Flow Rate FiO2 06/04/25 13:15 107/65 06/04/25 12:15 98.8 103 24 100 209.8 06/04/25 12:00 30 06/04/25 12:00 Mechanical Ventilator+ 06/03/25 19:53 Total Intake and Output 06/03/25 06/03/25 06/04/25 15:00 23:00 07:00 Intake Total 3426.52 ml 1647.00 ml 2719.25 ml Output Total 50 ml 150 ml Balance 3426.52 ml 1597.00 ml 2569.25 ml medications Current Medications Medications Dose Ordered Sig/Renny Route Start Time Stop Time Status Last Admin Dose Admin Midazolam HCl 50 ml @ 1 mls/hr Q24H IV 06/02/25 21:00 06/04/25 10:30 15 MLS/HR Fentanyl Citrate 250 ml @ 2.5 mls/hr Q24H IV 06/02/25 21:00 Norepinephrine Bitartrate 250 ml @ 3.75 mls/hr Q24H IV 06/02/25 21:15 06/04/25 13:15 33.75 MLS/HR Dextrose 50 ml UD PRN IV 06/03/25 00:00 Cancel Vasopressin 20 units/Sodium Chloride 100 ml @ 9 mls/hr Q11H7M IV 06/03/25 02:10 06/03/25 10:18 9 MLS/HR Vancomycin HCl 0 ml @ 0 mls/hr UD IV 06/03/25 05:00 Albuterol 2.5 mg Q6HPRN PRN NEB 06/03/25 05:00 Diagnostic Test (Pha) 1 strip IQ4HR 06/03/25 08:00 06/04/25 12:24 1 STRIP Insulin Human Regular IQ4HR SC 06/03/25 08:00 Dextrose 50 ml UD PRN IV 06/03/25 05:00 06/03/25 17:43 50 ML Enoxaparin Sodium 30 mg DAILY SC 06/03/25 10:00 06/04/25 09:18 30 MG Acetaminophen 650 mg Q6HP PRN PO 06/03/25 05:00 Hold Nitroglycerin 0.4 mg Q5MINP PRN SL 06/03/25 05:00 Morphine Sulfate 2 mg Q30M PRN IV 06/03/25 05:00 Phenylephrine HCl 250 ml @ 30 mls/hr Q8H20M IV 06/03/25 10:15 06/03/25 10:52 30 MLS/HR Thiamine HCl 100 mg DAILY IV 06/04/25 10:00 06/04/25 09:17 100 MG Folic Acid 1 mg/ Dextrose 50.2 ml @ 200.8 mls/ hr DAILY INJ 06/04/25 10:00 06/04/25 09:41 200.8 MLS/HR Pantoprazole Sodium 40 mg DAILY IV 06/04/25 10:00 06/04/25 09:17 40 MG Lorazepam 1 mg ONCE PRN IV 06/04/25 11:15 Piperacillin Sod/ Tazobactam Sod 100 ml @ 25 mls/hr Q12H IV 06/04/25 17:00 Examination Young female patient lying in bed, intubated and mechanically ventilated. Patient has left IJ Frankie catheter for hemodialysis General: Pallor, mucosa moist, afebrile Cardiovascular: Regular S1 and S2. No murmurs, gallops or rubs. No JVD elevation. No pedal edema Respiratory: Bilateral equal air entry, intubated and mechanically ventilated Abdomen: Soft, nontender, nondistended, normoactive bowel sounds, no rebound tenderness, no organomegaly, no masses Genitourinary: Alves seen draining 50 cc of dark urine Musculoskeletal: Lower extremity bruising seen more on the left lower extremity, left lower extremity soft laboratory and microbiology Laboratory Tests 06/04/25 03:15 Test 06/04/25 03:15 Range/Units Serum Glucose 157 H 74-106 mg/dL Microbiology Date/Time Source Procedure Growth Status 06/04/25 03:30 Nose MRSA Screen - Final Complete 06/02/25 20:23 Voided Urine Urine Culture - Preliminary Resulted 06/02/25 20:12 Blood Blood Culture - Preliminary NO GROWTH AFTER 24 HOURS OF INCUBATION. Resulted Labs and/or images reviewed: Labs reviewed by me, Image(s) reviewed by me Problem List/Assessment/Plan Problem List/Assessment/Plan Severe rhabdomyolysis ? Septic shock requiring IV pressor support Acute kidney injury likely prerenal versus ATN secondary to above-baseline unknown Transaminitis secondary to above NSTEMI Hypocalcemia Hyperkalemia Anion gap metabolic acidosis Lactic acidosis Anemia likely normocytic Vitamin-D deficiency Polysubstance use dependence Chest x-ray: Question a small/nodular opacity in the left midlung. Lungs are otherwise grossly clear. No pneumothorax. Received 5 L IV normal saline bolus Prelim blood culture negative Plan: Given the anuria, patient will benefit from urgent hemodialysis starting today for the next 3 days. We will monitor urine output. DC IV fluids at this time. Closely monitor lower extremity and soft tissue for swelling, rigidity and tenderness given likelihood of compartment syndrome after fluid resuscitation Monitor CK levels, phosphorus, calcium, potassium and magnesium levels LDH greater than 4500 Cardiology consultation appreciated IV antibiotic and IV pressor per primary team Strict I&Os We will continue to follow up Left IJ Frankie placed 06/04 Plan discussed with patient's father, nurse at bedside in which all questions have been answered Case discussed with Dr. Lopez Plan discussed with: Other (family, father) My Orders My Orders Orders - KRIS SHER Procedure Category Date Status Time Kidney US 06/04/25 Resulted 08:23 Communication Order ORDERS 06/04/25 Transmitted 08:28 KRIS SHER Jun 04, 2025 13:48
[2025-06-04] MEDS: PIPERACILLIN-TAZOB 3.375GM 100 ML IV SCH (16:13)
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
[2025-06-04] MEDS: Nepro With Carb Steady 1 Liter Bottle GT SCH (18:18)
[2025-06-04 19:07] LABS: Alkaline Phosphatase 87 U/L (46-116); Anion Gap 15 (5-15); BUN/Creatinine Ratio 7.7 (10.0-20.0); Carbon Dioxide 23 mmol/L (20-31); Glucose 98 mg/dL (74-106); Potassium 4.2 mmol/L (3.5-5.1)
[2025-06-04 19:22] LABS: Alanine Aminotransferase 2422 U/L (7-40); Albumin 2.6 g/dL (3.2-4.8); Bilirubin, Total 2.2 mg/dL (0.2-1.0); Blood Urea Nitrogen 31 mg/dL (9-23); Calcium 6.5 mg/dL (8.7-10.4); Chloride 107 mmol/L (98-107); Sodium 145 mmol/L (136-145); Total Protein 4.6 g/dL (5.7-8.2)
[2025-06-04] MEDS: ALBUTEROL SULF 2.5 MG/0.5ML(0.5%) NEB SOLN NEB PRN (22:27)
[2025-06-05] VITALS (110 sets, daily range): BP systolic 81–127; BP diastolic 50–85; PULSE 81–108; RESP 17–26; TEMP 96.4–99.9; O2SAT 99–100
[2025-06-05 03:32] LABS: Hematocrit 27.1 % (36.0-46.0); Hemoglobin 9.0 g/dL (12.2-16.2); Mean Corpuscular Hemoglobin 30.0 pg (28.0-32.0); Mean Corpuscular Volume 90.1 fL (80.0-100.0); Nucleated Red Blood Cells % 0.1 %
[2025-06-05 03:42] LABS: Anion Gap 14 (5-15); Carbon Dioxide 23 mmol/L (20-31); Chloride 108 mmol/L (98-107); Potassium 4.2 mmol/L (3.5-5.1); Sodium 145 mmol/L (136-145)
[2025-06-05 03:45] LABS: Alkaline Phosphatase 96 U/L (46-116); Anion Gap 15 (5-15); BUN/Creatinine Ratio 7.6 (10.0-20.0); Calcium 6.3 mg/dL (8.7-10.4); Carbon Dioxide 23 mmol/L (20-31); Potassium 4.2 mmol/L (3.5-5.1)
[2025-06-05 03:46] LABS: Albumin 2.5 g/dL (3.2-4.8); Bilirubin, Total 2.6 mg/dL (0.2-1.0); Blood Urea Nitrogen 35 mg/dL (9-23); Calcium 6.3 mg/dL (8.7-10.4); Chloride 108 mmol/L (98-107); Glucose 63 mg/dL (74-106); Sodium 146 mmol/L (136-145); Total Protein 4.5 g/dL (5.7-8.2)
[2025-06-05 03:48] LABS: BUN/Creatinine Ratio 7.6 (10.0-20.0)
[2025-06-05 03:50] LABS: Blood Urea Nitrogen 35 mg/dL (9-23); Glucose 63 mg/dL (74-106)
[2025-06-05 04:01] LABS: Alanine Aminotransferase 2155 U/L (7-40); Creatine Kinase IFCC > 39000 U/L (34-145)
--- NOTE | 2025-06-05 04:55 | DVH ---
CHEST RADIOGRAPH Indication: pna Technique: Single frontal view of the chest was obtained COMPARISON: XY CHEST XRAY 1 VIEW on DOS: 06/04/25, XY CHEST PORTABLE on DOS: 06/04/25, XY CHEST PORTABL E on DOS: 06/03/25, XY CHEST PORTABLE on DOS: 06/02/25 FINDINGS: Lines and Tubes: Unchanged. Lungs: Stable appearing bilateral pleural effusions and bibasilar pulmonary airspace disease. No pneumothorax. Cardiomediastinal contours: Unremarkable Bones: Unremarkable IMPRESSION: 1. Stable appearing bibasilar pulmonary airspace disease and bilateral pleural effusions. 2. Lines and tubes unchanged.
[2025-06-05 06:42] LABS: Base Excess -5.1 mmol/L (-2.0-3.0)
--- NOTE | 2025-06-05 07:43 | ECG ---
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
--- NOTE | 2025-06-05 10:43 | DVHPN2 ---
Progress Note - Dictate Date Seen: Jun 05, 2025 Medical Necessity Reason Pt with a Central, PICC or Fol: Yes The following are medically ne: Central Line, Alves Catheter Subjective Ms. Ramey is a 34 years old female with a history of anxiety, wax and possibly fentanyl abuse, she was admitted to the [facility] on 06/02/2025 with a chief company of altered mental status. I have seen and examined the patient, I have talked to her nurse, his father and sister, she is intubated, sedated, responsive to painful stimuli She is going through hemodialysis Fentanyl 75 mcg/hour, Levo 8 mcg/minute UDS, 06/02/2025: Cannabinoids, fentanyl Plasma alcohol, 05/23/25: 3 Urinalysis, 06/02/2025: WBC:, urine leukocyte esterase: Negative CBC, 06/03/2025: Metabolic acidosis, 06/04/2025: Metabolic acidosis, 06/05/2025: Compensated metabolic acidosis WBC/HB/PLT/MCV, 06/02/2025: 16.3/10.6/324/103.4, 06/03/2025: 8/10.7/208/94.4, Na, 06/02/2025: 135, 139, 06/03/25: 151 K, 06/02/2025: 7.5, 7.6, 06/03/25: 406 HCO3, 06/02/2025: <10, 12, 06/03/2025: 19 BUN/CR, 06/02/2025: 18/2.92 06/05/2025: 35/4.61 GFR, 06/02/2025: 21, 06/04/2025: 13, : 12 Ca, 06/02/2025: 6 ft two, six, 06/03/2025: 5.2 Lactic acid, 06/02/2025: 11, 9.1, 06/03/2025: 5.1, 2.6 TBI/AST/ALT/AP, 06/02/2025: 0.6/>6000?4005/110, 06/05/2025: 2.04/5186/2155/96 CK, 06/03/2025:>11616, 06/05/2025: .63994 Troponin I high sensitivity, 06/02/2025: 2381, 2267, 06/03/25: 4005 Chest x-ray, 06/02/2025: Endotracheal and enteric tubes are in satisfactory position. Question a small/nodular opacity in the left midlung. Lungs are otherwise grossly clear. No pneumothorax. Partially visualized gaseous distention of the stomach. CT head, 06/02/2025: No acute intracranial abnormality. vital signs Vital Sign Date Time Temp Pulse Resp B/P (MAP) Pulse Ox O2 Delivery O2 Flow Rate FiO2 06/05/25 10:20 30 06/05/25 10:00 92 06/05/25 10:00 24 100 Mechanical Ventilator+ 06/05/25 09:23 106/60 (75) 06/05/25 06:45 99.3 210.7 06/03/25 19:53 Total Intake and Output 06/04/25 06/04/25 06/05/25 15:00 23:00 07:00 Intake Total 941.45 ml 456.75 ml 728.50 ml Output Total 50 ml 30 ml Balance 941.45 ml 406.75 ml 698.50 ml medications Current Medications Medications Dose Ordered Sig/Renny Route Start Time Stop Time Status Last Admin Dose Admin Midazolam HCl 50 ml @ 1 mls/hr Q24H IV 06/02/25 21:00 06/05/25 06:32 15 MLS/HR Fentanyl Citrate 250 ml @ 2.5 mls/hr Q24H IV 06/02/25 21:00 06/04/25 16:43 2.5 MLS/HR Norepinephrine Bitartrate 250 ml @ 3.75 mls/hr Q24H IV 06/02/25 21:15 06/04/25 23:19 22.5 MLS/HR Dextrose 50 ml UD PRN IV 06/03/25 00:00 Cancel Vasopressin 20 units/Sodium Chloride 100 ml @ 9 mls/hr Q11H7M IV 06/03/25 02:10 06/03/25 10:18 9 MLS/HR Albuterol 2.5 mg Q6HPRN PRN NEB 06/03/25 05:00 06/04/25 22:27 2.5 MG Diagnostic Test (Pha) 1 strip IQ4HR 06/03/25 08:00 06/05/25 04:00 1 STRIP Insulin Human Regular IQ4HR SC 06/03/25 08:00 Dextrose 50 ml UD PRN IV 06/03/25 05:00 06/04/25 16:13 50 ML Enoxaparin Sodium 30 mg DAILY SC 06/03/25 10:00 06/04/25 09:18 30 MG Acetaminophen 650 mg Q6HP PRN PO 06/03/25 05:00 Hold Nitroglycerin 0.4 mg Q5MINP PRN SL 06/03/25 05:00 Morphine Sulfate 2 mg Q30M PRN IV 06/03/25 05:00 Phenylephrine HCl 250 ml @ 30 mls/hr Q8H20M IV 06/03/25 10:15 06/03/25 10:52 30 MLS/HR Thiamine HCl 100 mg DAILY IV 06/04/25 10:00 06/04/25 09:17 100 MG Folic Acid 1 mg/ Dextrose 50.2 ml @ 200.8 mls/ hr DAILY INJ 06/04/25 10:00 06/04/25 09:41 200.8 MLS/HR Pantoprazole Sodium 40 mg DAILY IV 06/04/25 10:00 06/04/25 09:17 40 MG Piperacillin Sod/ Tazobactam Sod 100 ml @ 25 mls/hr Q12H IV 06/04/25 17:00 06/05/25 04:31 25 MLS/HR Enteral Nutritional Formula 1,000 ml 30ML/HR GT 06/04/25 18:15 06/04/25 18:18 1,000 ML objective The patient is well-nourished and well-developed with no distress. The patient is intubated MENTAL STATUS: Subjective CRANIAL NERVES: Pupils are equal, round and reactive.There are corneal reflexes and doll's eyes phenomenon. No signs of facial weakness. There are gagging or coughing reflexes SENSATION: Responses to pain stimuli. MOTOR: Normal tone in the upper and lower extremity. Normal muscle bulk. No fasciculations. No spontaneous movement. REFLEXES: Deep tendon reflexes are symmetrical. No pathological reflexes. CEREBELLAR/COORDINATION: Deferred GAIT/STATION: deferred. laboratory and microbiology Laboratory Tests 06/05/25 02:30 Test 06/05/25 02:30 Range/Units Serum Glucose 63 L 74-106 mg/dL Problem List Coma Fentanyl overdosing/toxic encephalopathy Hypoxic encephalopathy Metabolic encephalopathy Acute respiratory failure secondary to fentanyl overdosing Hypoglycemia Rhabdomyolysis Elevated liver function tests Secondary to rhabdomyolysis Rule out shocked liver Substance abuse Sepsis Kidney failure Elevated liver function tests Assessment/Plan Monitoring Supportive treatment ICU care Follow-up lab EEG Consider MRI brain or follow-up CT head Stabilize vitals/pressor drips Recreational support/vent management Oxygen Folic acid supplementation Thiamine supplementation IV antibiotics Hemodialysis Nephrology on case More recommendation per clinical course This medical document was created using an electronic medical record system with [employer] Prognosis Guarded Plan discussed with: Other Critical Care Time(min): 30 GABRIELLE ISIDRO MD Jun 05, 2025 10:43
[2025-06-05] MEDS: SODIUM CHL 0.9% 1000 ML BAG XX ONE (10:52)
[2025-06-05 12:22] LABS: Lactic Acid w/Reflex 2.5 mmol/L (0.4-2.0)
[2025-06-05 12:37] LABS: Magnesium 1.6 mg/dL (1.6-2.6)
--- NOTE | 2025-06-05 13:25 | DVHPN2 ---
Progress Note Date Seen: Jun 05, 2025 Resident Creating Document: KRIS SHER RESIDENT Medical Necessity Reason Pt with a Central, PICC or Fol: Yes The following are medically ne: Central Line, Alves Catheter Subjective Review of Systems Ms Ramey is a 34-year-old female who was BIBA as she was found unconscious and unresponsive by her family. History taking was completed with the help of chart review. At the time of arrival of EMS, patient respiratory rate was 4, patient was hypotensive, Narcan was given which provided brief response. On arrival, patient was experiencing low-grade fever, hypotensive, tachycardic and she was intubated subsequently. White blood cell count 16 downtrending to 8. ABG showed pH 6.8, increasing to 7 06/03-Patient seen and examined at the bedside. Urine output only 100 cc of dark urine. 2 bicarb 50 mEq given. Repeat BMP ordered. Lactic acid downtrending. Follow up with CK. 06/04-patient seen, Frankie cath placed. Patient undergoing hemodialysis. 06/05-patient seen, underwent hemodialysis yesterday and today. 1 L taken out. Weaning off pressors. Lactic acid downtrending. Holding IV fluids Objective vital signs Vital Sign Date Time Temp Pulse Resp B/P (MAP) Pulse Ox O2 Delivery O2 Flow Rate FiO2 06/05/25 12:30 98.4 89 23 98/62 (74) 100 98.4 108/63 (78) 06/05/25 12:30 Mechanical Ventilator+ 30 30 06/03/25 19:53 Total Intake and Output 06/04/25 06/04/25 06/05/25 15:00 23:00 07:00 Intake Total 941.45 ml 456.75 ml 766.00 ml Output Total 50 ml 30 ml Balance 941.45 ml 406.75 ml 736.00 ml medications Current Medications Medications Dose Ordered Sig/Renny Route Start Time Stop Time Status Last Admin Dose Admin Midazolam HCl 50 ml @ 1 mls/hr Q24H IV 06/02/25 21:00 06/05/25 06:32 15 MLS/HR Fentanyl Citrate 250 ml @ 2.5 mls/hr Q24H IV 06/02/25 21:00 06/04/25 16:43 2.5 MLS/HR Norepinephrine Bitartrate 250 ml @ 3.75 mls/hr Q24H IV 06/02/25 21:15 06/04/25 23:19 22.5 MLS/HR Dextrose 50 ml UD PRN IV 06/03/25 00:00 Cancel Vasopressin 20 units/Sodium Chloride 100 ml @ 9 mls/hr Q11H7M IV 06/03/25 02:10 06/03/25 10:18 9 MLS/HR Albuterol 2.5 mg Q6HPRN PRN NEB 06/03/25 05:00 06/04/25 22:27 2.5 MG Diagnostic Test (Pha) 1 strip IQ4HR 06/03/25 08:00 06/05/25 12:00 1 STRIP Insulin Human Regular IQ4HR SC 06/03/25 08:00 Dextrose 50 ml UD PRN IV 06/03/25 05:00 06/04/25 16:13 50 ML Acetaminophen 650 mg Q6HP PRN PO 06/03/25 05:00 Hold Nitroglycerin 0.4 mg Q5MINP PRN SL 06/03/25 05:00 Morphine Sulfate 2 mg Q30M PRN IV 06/03/25 05:00 Phenylephrine HCl 250 ml @ 30 mls/hr Q8H20M IV 06/03/25 10:15 06/03/25 10:52 30 MLS/HR Thiamine HCl 100 mg DAILY IV 06/04/25 10:00 06/04/25 09:17 100 MG Folic Acid 1 mg/ Dextrose 50.2 ml @ 200.8 mls/ hr DAILY INJ 06/04/25 10:00 06/04/25 09:41 200.8 MLS/HR Pantoprazole Sodium 40 mg DAILY IV 06/04/25 10:00 06/04/25 09:17 40 MG Piperacillin Sod/ Tazobactam Sod 100 ml @ 25 mls/hr Q12H IV 06/04/25 17:00 06/05/25 04:31 25 MLS/HR Enteral Nutritional Formula 1,000 ml 30ML/HR GT 06/04/25 18:15 06/04/25 18:18 1,000 ML Examination Young female patient lying in bed, intubated and mechanically ventilated. Patient has left IJ Frankie catheter for hemodialysis General: Pallor, mucosa moist, afebrile Cardiovascular: Regular S1 and S2. No murmurs, gallops or rubs. No JVD elevation. Nonpitting pedal edema bilateral Respiratory: Bilateral equal air entry, intubated and mechanically ventilated Abdomen: Soft, nontender, nondistended, normoactive bowel sounds, no rebound tenderness, no organomegaly, no masses Genitourinary: Alves seen draining 50 cc of dark urine Musculoskeletal: Lower extremity bruising seen more on the left lower extremity, left lower extremity soft laboratory and microbiology Laboratory Tests 06/05/25 02:30 Test 06/05/25 02:30 Range/Units Serum Glucose 63 L 74-106 mg/dL Microbiology Date/Time Source Procedure Growth Status 06/04/25 03:30 Nose MRSA Screen - Final Complete 06/02/25 20:23 Voided Urine Urine Culture - Final Complete 06/02/25 20:12 Blood Blood Culture - Preliminary NO GROWTH AFTER 48 HOURS OF INCUBATION. Resulted Labs and/or images reviewed: Labs reviewed by me, Image(s) reviewed by me Problem List/Assessment/Plan Problem List/Assessment/Plan Severe rhabdomyolysis ? Septic shock requiring IV pressor support Acute kidney injury likely prerenal versus ATN secondary to above-baseline unknown Transaminitis secondary to above NSTEMI Hypocalcemia Hyperkalemia Anion gap metabolic acidosis Lactic acidosis Anemia likely normocytic Vitamin-D deficiency Polysubstance use dependence Chest x-ray: Question a small/nodular opacity in the left midlung. Lungs are otherwise grossly clear. No pneumothorax. Received 5 L IV normal saline bolus Prelim blood culture negative Plan: Given the anuria, patient underwent hemodialysis 06/04, 06/05 probable hemodialysis scheduled for tomorrow 06/06. We will monitor urine output. DC IV fluids at this time. Closely monitor lower extremity and soft tissue for swelling, rigidity and tenderness given likelihood of compartment syndrome after fluid resuscitation Monitor CK levels, phosphorus, calcium, potassium and magnesium levels Uric acid decreased to 9.1, Mag 1.6, replenish magnesium. LDH greater than 4500 Cardiology consultation appreciated IV antibiotic and IV pressor per primary team Strict I&Os We will continue to follow up Left IJ Frankie placed 06/04 Plan discussed with patient's father, nurse at bedside in which all questions have been answered Case discussed with Dr. Lopez Plan discussed with: Patient KRIS SHER RESIDENT Jun 05, 2025 13:25
[2025-06-05] MEDS: MAGNESIUM SULFATE 1GM/100ML 100 ML IV ONE (15:09)
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
[2025-06-06] VITALS (105 sets, daily range): BP systolic 89–113; BP diastolic 54–72; PULSE 77–105; RESP 14–31; TEMP 95.9–99.3; O2SAT 100
--- NOTE | 2025-06-06 00:21 | DVHEEG2 ---
Neurology EEG Procedural Note Procedural Note EXAM DATE: 10/05/2025 REFERRING DOCTOR: Dr. Isidro TECHNIQUE: Eighteen channels of EEG, 2 channels of EOG, and 1 channel of EKG were recorded using the International 10/20 system. CLINICAL DATA: The patient was referred for an EEG evaluation for the evidence of seizure disorder. MEDICATIONS: See the chart BACKGROUND ACTIVITY: There was significant amount of environmental artifacts in the recording. The EEG appeared to be diffuse low amplitude theta activity over both hemispheres ACTIVATION: Hyperventilation: Not done Photic Stimulation: Not done Sleep: Not seen IMPRESSION: This is inadequate, likely abnormal EEG, which can be seen in cerebral dysfunction due to metabolic/hypoxic encephalopathy or medication effects, please correlate clinically, please consider follow up EEG if a seizure disorder is clinically indicated to rule out The EKG channel showed a regular heart rate of 114/min [place] [address] GABRIELLE ISIDRO MD Jun 06, 2025 00:21
[2025-06-06 03:11] LABS: Hemoglobin 8.3 g/dL (12.2-16.2); Nucleated Red Blood Cells % 0.3 %
[2025-06-06 03:14] LABS: Hematocrit 24.6 % (36.0-46.0); Mean Corpuscular Hemoglobin 30.0 pg (28.0-32.0); Mean Corpuscular Volume 88.8 fL (80.0-100.0)
[2025-06-06 03:29] LABS: Alkaline Phosphatase 98 U/L (46-116); Anion Gap 13 (5-15); BUN/Creatinine Ratio 7.1 (10.0-20.0); Carbon Dioxide 25 mmol/L (20-31); Chloride 106 mmol/L (98-107); Magnesium 1.9 mg/dL (1.6-2.6); Potassium 3.7 mmol/L (3.5-5.1); Sodium 144 mmol/L (136-145)
[2025-06-06 03:32] LABS: Albumin 2.6 g/dL (3.2-4.8); Bilirubin, Total 3.0 mg/dL (0.2-1.0); Blood Urea Nitrogen 29 mg/dL (9-23); Calcium 7.3 mg/dL (8.7-10.4); Glucose 68 mg/dL (74-106); Total Protein 4.6 g/dL (5.7-8.2)
[2025-06-06 03:43] LABS: Alanine Aminotransferase 1516 U/L (7-40)
--- NOTE | 2025-06-06 06:10 | DVH ---
CHEST RADIOGRAPH Indication: pna Technique: Single frontal view of the chest was obtained COMPARISON: XY CHEST PORTABLE on DOS: 06/05/25, XY CHEST XRAY 1 VIEW on DOS: 06/04/25, XY CHEST PORTABL E on DOS: 06/04/25, XY CHEST PORTABLE on DOS: 06/03/25, XY CHEST PORTABLE on DOS: 06/02/25 FINDINGS: Lines and Tubes: Unchanged. Lungs: Stable appearing bibasilar pulmonary airspace disease and small bilateral pleural effusions. No pneumothorax. Cardiomediastinal contours: Unremarkable Bones: Unremarkable IMPRESSION: 1. Stable bibasilar pulmonary airspace disease and bilateral pleural effusions. 2. Lines and tubes unchanged.
[2025-06-06 08:07] LABS: Base Excess 2.0 mmol/L (-2.0-3.0)
--- NOTE | 2025-06-06 10:47 | DVHPN2 ---
Progress Note - Dictate Date Seen: Jun 06, 2025 Medical Necessity Reason Pt with a Central, PICC or Fol: Yes The following are medically ne: Central Line, Alves Catheter Subjective Ms. Ramey is a 34 years old female with a history of anxiety, wax and possibly fentanyl abuse, she was admitted to the [facility] on 06/02/2025 with a chief company of altered mental status. I have seen and examined the patient, I have talked to her nurse, his father and sister, she is intubated, sedated, responsive to verbal and touch stimuli, Fentanyl 100 mcg/hour, Versed 13mg/hour UDS, 06/02/2025: Cannabinoids, fentanyl Plasma alcohol, 05/23/25: 3 Urinalysis, 06/02/2025: WBC:, urine leukocyte esterase: Negative CBC, 06/03/2025: Metabolic acidosis, 06/04/2025: Metabolic acidosis, 06/05/2025: Compensated metabolic acidosis WBC/HB/PLT/MCV, 06/02/2025: 16.3/10.6/324/103.4, 06/03/2025: 8/10.7/208/94.4, Na, 06/02/2025: 135, 139, 06/03/25: 151 K, 06/02/2025: 7.5, 7.6, 06/03/25: 406 HCO3, 06/02/2025: <10, 12, 06/03/2025: 19 BUN/CR, 06/02/2025: 18/2.92 06/05/2025: 35/4.61 GFR, 06/02/2025: 21, 06/04/2025: 13, : 12 Ca, 06/02/2025: 6 ft two, six, 06/03/2025: 5.2 Lactic acid, 06/02/2025: 11, 9.1, 06/03/2025: 5.1, 2.6 TBI/AST/ALT/AP, 06/02/2025: 0.6/>6000?4005/110, 06/05/2025: 2.04/5186/2155/96 CK, 06/03/2025:>45684, 06/05/2025: .53291 Troponin I high sensitivity, 06/02/2025: 2381, 2267, 06/03/25: 4005 EEG, 06/04/2025: inadequate, likely abnormal EEG Chest x-ray, 06/02/2025: Endotracheal and enteric tubes are in satisfactory position. Question a small/nodular opacity in the left midlung. Lungs are otherwise grossly clear. No pneumothorax. Partially visualized gaseous distention of the stomach. CT head, 06/02/2025: No acute intracranial abnormality. vital signs Vital Sign Date Time Temp Pulse Resp B/P (MAP) Pulse Ox O2 Delivery O2 Flow Rate FiO2 06/06/25 10:35 84 24 96/57 (70) 100 30 06/06/25 06:30 99.1 210.4 06/06/25 06:00 Mechanical Ventilator+ Total Intake and Output 06/05/25 06/05/25 06/06/25 15:00 23:00 07:00 Intake Total 276.25 ml 621.50 ml 349.5 ml Output Total 1020 ml 40 ml Balance 276.25 ml -398.50 ml 309.5 ml medications Current Medications Medications Dose Ordered Sig/Renny Route Start Time Stop Time Status Last Admin Dose Admin Midazolam HCl 50 ml @ 1 mls/hr Q24H IV 06/02/25 21:00 06/06/25 10:09 13 MLS/HR Fentanyl Citrate 250 ml @ 2.5 mls/hr Q24H IV 06/02/25 21:00 06/06/25 00:36 7.5 MLS/HR Norepinephrine Bitartrate 250 ml @ 3.75 mls/hr Q24H IV 06/02/25 21:15 06/05/25 22:40 3.75 MLS/HR Dextrose 50 ml UD PRN IV 06/03/25 00:00 Cancel Vasopressin 20 units/Sodium Chloride 100 ml @ 9 mls/hr Q11H7M IV 06/03/25 02:10 06/03/25 10:18 9 MLS/HR Albuterol 2.5 mg Q6HPRN PRN NEB 06/03/25 05:00 06/06/25 07:09 2.5 MG Diagnostic Test (Pha) 1 strip IQ4HR 06/03/25 08:00 06/06/25 08:20 1 STRIP Dextrose 50 ml UD PRN IV 06/03/25 05:00 06/04/25 16:13 50 ML Acetaminophen 650 mg Q6HP PRN PO 06/03/25 05:00 Hold Nitroglycerin 0.4 mg Q5MINP PRN SL 06/03/25 05:00 Morphine Sulfate 2 mg Q30M PRN IV 06/03/25 05:00 Phenylephrine HCl 250 ml @ 30 mls/hr Q8H20M IV 06/03/25 10:15 06/03/25 10:52 30 MLS/HR Thiamine HCl 100 mg DAILY IV 06/04/25 10:00 06/06/25 10:07 100 MG Folic Acid 1 mg/ Dextrose 50.2 ml @ 200.8 mls/ hr DAILY INJ 06/04/25 10:00 06/05/25 13:36 200.8 MLS/HR Pantoprazole Sodium 40 mg DAILY IV 06/04/25 10:00 06/06/25 10:07 40 MG Piperacillin Sod/ Tazobactam Sod 100 ml @ 25 mls/hr Q12H IV 06/04/25 17:00 06/06/25 04:32 25 MLS/HR Enteral Nutritional Formula 1,000 ml 30ML/HR GT 06/04/25 18:15 06/05/25 17:42 1,000 ML objective The patient is well-nourished and well-developed with no distress. The patient is intubated MENTAL STATUS: Subjective CRANIAL NERVES: Pupils are equal, round and reactive.There are a lipid conjugated eye movement. No signs of facial weakness. There are gagging or coughing reflexes, she moves the head SENSATION: Responses to pain and light touch stimuli. MOTOR: Normal tone in the upper and lower extremity. Normal muscle bulk. No fasciculations. She moves the arms and legs. REFLEXES: Deep tendon reflexes are symmetrical. No pathological reflexes. CEREBELLAR/COORDINATION: Deferred GAIT/STATION: deferred. laboratory and microbiology Laboratory Tests 06/06/25 02:30 Test 06/06/25 02:30 Range/Units Serum Glucose 68 L 74-106 mg/dL Problem List Coma Fentanyl overdosing/toxic encephalopathy Hypoxic encephalopathy Metabolic encephalopathy Acute respiratory failure secondary to fentanyl overdosing Hypoglycemia Rhabdomyolysis Elevated liver function tests Secondary to rhabdomyolysis Rule out shocked liver Substance abuse Sepsis Kidney failure Elevated liver function tests Assessment/Plan Monitoring Supportive treatment ICU care Follow-up lab Consider MRI brain or follow-up CT head Stabilize vitals/pressor drips Recreational support/vent management Oxygen Folic acid supplementation Thiamine supplementation IV antibiotics Hemodialysis Nephrology on case More recommendation per clinical course This medical document was created using an electronic medical record system with [employer] Prognosis guarded Dietary Evaluation Review Comments: 1. TF Nepro Carb Steady @ 40ml/hr. Start @ 20ml/hr, increase 10ml/hr Q4H until goal is reached. TF at goal volume provides 100% energy & protein needs - 1728 kcal, 78gm protein, 698 ml free water 2. Water flush 260ml Q6H if allowed, adjust PRN 3. Monitor TF tolerance, lab values, wt trends, I/O Expected Outcomes/Goals: To meet >75% estimated needs Lab values to improve Fu 2-3 days Plan discussed with: Other GABRIELLE ISIDRO MD Jun 06, 2025 10:47
--- NOTE | 2025-06-06 11:06 | DVHPN2 ---
Progress Note Date Seen: Jun 06, 2025 Resident Creating Document: KRIS SHER RESIDENT Medical Necessity Reason Pt with a Central, PICC or Fol: Yes The following are medically ne: Central Line, Alves Catheter Subjective Review of Systems Ms Ramey is a 34-year-old female who was BIBA as she was found unconscious and unresponsive by her family. History taking was completed with the help of chart review. At the time of arrival of EMS, patient respiratory rate was 4, patient was hypotensive, Narcan was given which provided brief response. On arrival, patient was experiencing low-grade fever, hypotensive, tachycardic and she was intubated subsequently. White blood cell count 16 downtrending to 8. ABG showed pH 6.8, increasing to 7 06/03-Patient seen and examined at the bedside. Urine output only 100 cc of dark urine. 2 bicarb 50 mEq given. Repeat BMP ordered. Lactic acid downtrending. Follow up with CK. 06/04-patient seen, Frankie cath placed. Patient undergoing hemodialysis. 06/05-patient seen, underwent hemodialysis yesterday and today. 1 L taken out. Weaning off pressors. Lactic acid downtrending. Holding IV fluids 06/06-patient is more awake, increasing lower extremity pitting edema up to thighs with water filled blister. Lower extremities soft. Hemodialysis pending. Objective vital signs Vital Sign Date Time Temp Pulse Resp B/P (MAP) Pulse Ox O2 Delivery O2 Flow Rate FiO2 06/06/25 10:35 84 24 96/57 (70) 100 30 06/06/25 06:30 99.1 210.4 06/06/25 06:00 Mechanical Ventilator+ Total Intake and Output 06/05/25 06/05/25 06/06/25 15:00 23:00 07:00 Intake Total 276.25 ml 621.50 ml 349.5 ml Output Total 1020 ml 40 ml Balance 276.25 ml -398.50 ml 309.5 ml medications Current Medications Medications Dose Ordered Sig/Renny Route Start Time Stop Time Status Last Admin Dose Admin Midazolam HCl 50 ml @ 1 mls/hr Q24H IV 06/02/25 21:00 06/06/25 10:09 13 MLS/HR Fentanyl Citrate 250 ml @ 2.5 mls/hr Q24H IV 06/02/25 21:00 06/06/25 00:36 7.5 MLS/HR Norepinephrine Bitartrate 250 ml @ 3.75 mls/hr Q24H IV 06/02/25 21:15 06/05/25 22:40 3.75 MLS/HR Dextrose 50 ml UD PRN IV 06/03/25 00:00 Cancel Vasopressin 20 units/Sodium Chloride 100 ml @ 9 mls/hr Q11H7M IV 06/03/25 02:10 06/03/25 10:18 9 MLS/HR Albuterol 2.5 mg Q6HPRN PRN NEB 06/03/25 05:00 06/06/25 07:09 2.5 MG Diagnostic Test (Pha) 1 strip IQ4HR 06/03/25 08:00 06/06/25 08:20 1 STRIP Dextrose 50 ml UD PRN IV 06/03/25 05:00 06/04/25 16:13 50 ML Acetaminophen 650 mg Q6HP PRN PO 06/03/25 05:00 Hold Nitroglycerin 0.4 mg Q5MINP PRN SL 06/03/25 05:00 Morphine Sulfate 2 mg Q30M PRN IV 06/03/25 05:00 Phenylephrine HCl 250 ml @ 30 mls/hr Q8H20M IV 06/03/25 10:15 06/03/25 10:52 30 MLS/HR Thiamine HCl 100 mg DAILY IV 06/04/25 10:00 06/06/25 10:07 100 MG Folic Acid 1 mg/ Dextrose 50.2 ml @ 200.8 mls/ hr DAILY INJ 06/04/25 10:00 06/05/25 13:36 200.8 MLS/HR Pantoprazole Sodium 40 mg DAILY IV 06/04/25 10:00 06/06/25 10:07 40 MG Piperacillin Sod/ Tazobactam Sod 100 ml @ 25 mls/hr Q12H IV 06/04/25 17:00 06/06/25 04:32 25 MLS/HR Enteral Nutritional Formula 1,000 ml 30ML/HR GT 06/04/25 18:15 06/05/25 17:42 1,000 ML Examination Young female patient lying in bed, intubated and mechanically ventilated. Patient has left IJ Frankie catheter for hemodialysis General: Pallor, mucosa moist, afebrile Cardiovascular: Regular S1 and S2. No murmurs, gallops or rubs. No JVD elevation. 2+ Pitting pedal edema bilateral Respiratory: Bilateral equal air entry, intubated and mechanically ventilated Abdomen: Soft, nontender, nondistended, normoactive bowel sounds, no rebound tenderness, no organomegaly, no masses Genitourinary: Alves seen draining dark urine Musculoskeletal: Lower extremity bruising seen more on the left lower extremity, left lower extremity soft laboratory and microbiology Laboratory Tests 06/06/25 02:30 Test 06/06/25 02:30 Range/Units Serum Glucose 68 L 74-106 mg/dL Microbiology Date/Time Source Procedure Growth Status 06/04/25 03:30 Nose MRSA Screen - Final Complete 06/02/25 20:23 Voided Urine Urine Culture - Final Complete 06/02/25 20:12 Blood Blood Culture - Preliminary NO GROWTH AFTER 72 HOURS OF INCUBATION. Resulted Labs and/or images reviewed: Labs reviewed by me, Image(s) reviewed by me Problem List/Assessment/Plan Problem List/Assessment/Plan Severe rhabdomyolysis ? Septic shock requiring IV pressor support ALOC ? Toxic status post intubation and mechanical ventilator Acute kidney injury likely prerenal versus ATN secondary to above-baseline unknown Transaminitis secondary to above NSTEMI Hypocalcemia Hyperkalemia Anion gap metabolic acidosis Lactic acidosis Anemia likely normocytic Vitamin-D deficiency Polysubstance use dependence Chest x-ray: Question a small/nodular opacity in the left midlung. Lungs are otherwise grossly clear. No pneumothorax. Received 5 L IV normal saline bolus Prelim blood culture negative Plan: Given the anuria, patient underwent hemodialysis 06/04, 06/05 pending hemodialysis today 06/06 - goal is to remove >2L each session. We will monitor urine output. DC IV fluids at this time. Closely monitor lower extremity and soft tissue for swelling, rigidity and tenderness given likelihood of compartment syndrome after fluid resuscitation CK levels trending down Uric acid decreased to 9.1 LDH greater than 4500 Cardiology consultation appreciated IV antibiotic per primary team Strict I&Os We will continue to follow up Off IV pressors Left IJ Frankie placed 06/04 Plan discussed with patient's father, nurse at bedside in which all questions have been answered Case discussed with Dr. Lopez Plan discussed with: Patient Dietary Evaluation Review Comments: 1. TF Nepro Carb Steady @ 40ml/hr. Start @ 20ml/hr, increase 10ml/hr Q4H until goal is reached. TF at goal volume provides 100% energy & protein needs - 1728 kcal, 78gm protein, 698 ml free water 2. Water flush 260ml Q6H if allowed, adjust PRN 3. Monitor TF tolerance, lab values, wt trends, I/O Expected Outcomes/Goals: To meet >75% estimated needs Lab values to improve Fu 2-3 days KRIS SHER RESIDENT Jun 06, 2025 11:06
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
[2025-06-06] MEDS ORDERED: ALBUMIN 25% 50 ML IV ONE (15:00)
[2025-06-06] MEDS: ALBUMIN 25% 100 ML IV ONE (15:32)
[2025-06-06] MEDS: SODIUM CHL 0.9% 1000 ML BAG XX ONE (15:33)
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
[2025-06-07] VITALS (67 sets, daily range): BP systolic 83–123; BP diastolic 47–84; PULSE 73–93; RESP 14–34; TEMP 98.3–99.1; O2SAT 100
[2025-06-07 04:08] LABS: Hemoglobin 8.2 g/dL (12.2-16.2); Mean Corpuscular Hemoglobin 30.0 pg (28.0-32.0)
[2025-06-07 04:10] LABS: Hematocrit 24.2 % (36.0-46.0); Mean Corpuscular Volume 88.2 fL (80.0-100.0)
[2025-06-07 04:13] LABS: Anion Gap 12 (5-15); BUN/Creatinine Ratio 6.9 (10.0-20.0); Carbon Dioxide 27 mmol/L (20-31); Chloride 104 mmol/L (98-107); Glucose 84 mg/dL (74-106); Sodium 143 mmol/L (136-145)
[2025-06-07 04:25] LABS: Alanine Aminotransferase 907 U/L (7-40); Albumin 2.8 g/dL (3.2-4.8); Alkaline Phosphatase 160 U/L (46-116); Bilirubin, Total 4.2 mg/dL (0.2-1.0); Blood Urea Nitrogen 25 mg/dL (9-23); Calcium 7.5 mg/dL (8.7-10.4); Potassium 3.3 mmol/L (3.5-5.1); Total Protein 4.8 g/dL (5.7-8.2)
[2025-06-07 05:21] LABS: Total Cells Counted 100.0 (100)
--- NOTE | 2025-06-07 05:54 | DVH ---
CHEST RADIOGRAPH Indication: pna Technique: Single frontal view of the chest was obtained COMPARISON: XY CHEST PORTABLE on DOS: 06/06/25, XY CHEST PORTABLE on DOS: 06/05/25, XY CHEST XRAY 1 VIE W on DOS: 06/04/25, XY CHEST PORTABLE on DOS: 06/04/25, XY CHEST PORTABLE on DOS: 06/03/25 FINDINGS: Lines and Tubes: Endotracheal tube, enteric catheter and left central venous catheter in satisfactory position Lungs: Multifocal airspace disease Pleura: No effusion. No pneumothorax. Cardiomediastinal contours: Unremarkable Bones: Unremarkable IMPRESSION: Lines and tubes in satisfactory position. No significant interval change.
[2025-06-07 07:07] LABS: Base Excess 4.4 mmol/L (-2.0-3.0)
[2025-06-07] MEDS: ALBUMIN 25% 100 ML IV ONE (09:00)
--- NOTE | 2025-06-07 10:11 | DVHPN2 ---
Progress Note Date Seen: Jun 07, 2025 Resident Creating Document: KRIS SHER RESIDENT Medical Necessity Reason Pt with a Central, PICC or Fol: Yes The following are medically ne: Central Line, Alves Catheter Subjective Review of Systems Ms Ramey is a 34-year-old female who was BIBA as she was found unconscious and unresponsive by her family. History taking was completed with the help of chart review. At the time of arrival of EMS, patient respiratory rate was 4, patient was hypotensive, Narcan was given which provided brief response. On arrival, patient was experiencing low-grade fever, hypotensive, tachycardic and she was intubated subsequently. White blood cell count 16 downtrending to 8. ABG showed pH 6.8, increasing to 7 06/03-Patient seen and examined at the bedside. Urine output only 100 cc of dark urine. 2 bicarb 50 mEq given. Repeat BMP ordered. Lactic acid downtrending. Follow up with CK. 06/04-patient seen, Frankie cath placed. Patient undergoing hemodialysis. 06/05-patient seen, underwent hemodialysis yesterday and today. 1 L taken out. Weaning off pressors. Lactic acid downtrending. Holding IV fluids 06/06-patient is more awake, increasing lower extremity pitting edema up to thighs with water filled blister. Lower extremities soft. Hemodialysis pending. 06/07 - CKD trending down, hemodialysis with K bath undergoing. Objective vital signs Vital Sign Date Time Temp Pulse Resp B/P (MAP) Pulse Ox O2 Delivery O2 Flow Rate FiO2 06/07/25 09:15 73 24 96/63 (74) 100 104/63 (77) 06/07/25 08:25 30 06/07/25 08:02 Mechanical Ventilator+ 06/07/25 07:45 99.0 99.0 Total Intake and Output 06/06/25 06/06/25 06/07/25 15:00 23:00 07:00 Intake Total 331.7 ml 602 ml 494.0 ml Output Total 2020 ml 25 ml Balance 331.7 ml -1418 ml 469.0 ml medications Current Medications Medications Dose Ordered Sig/Renny Route Start Time Stop Time Status Last Admin Dose Admin Midazolam HCl 50 ml @ 1 mls/hr Q24H IV 06/02/25 21:00 06/07/25 07:48 13 MLS/HR Fentanyl Citrate 250 ml @ 2.5 mls/hr Q24H IV 06/02/25 21:00 06/07/25 00:32 10 MLS/HR Dextrose 50 ml UD PRN IV 06/03/25 00:00 Cancel Albuterol 2.5 mg Q6HPRN PRN NEB 06/03/25 05:00 06/06/25 07:09 2.5 MG Diagnostic Test (Pha) 1 strip IQ4HR 06/03/25 08:00 06/07/25 07:48 1 STRIP Dextrose 50 ml UD PRN IV 06/03/25 05:00 06/04/25 16:13 50 ML Acetaminophen 650 mg Q6HP PRN PO 06/03/25 05:00 Hold Nitroglycerin 0.4 mg Q5MINP PRN SL 06/03/25 05:00 Morphine Sulfate 2 mg Q30M PRN IV 06/03/25 05:00 Phenylephrine HCl 250 ml @ 30 mls/hr Q8H20M IV 06/03/25 10:15 06/03/25 10:52 30 MLS/HR Thiamine HCl 100 mg DAILY IV 06/04/25 10:00 06/06/25 10:07 100 MG Folic Acid 1 mg/ Dextrose 50.2 ml @ 200.8 mls/ hr DAILY INJ 06/04/25 10:00 06/06/25 12:06 200.8 MLS/HR Pantoprazole Sodium 40 mg DAILY IV 06/04/25 10:00 06/06/25 10:07 40 MG Piperacillin Sod/ Tazobactam Sod 100 ml @ 25 mls/hr Q12H IV 06/04/25 17:00 06/07/25 03:59 25 MLS/HR Enteral Nutritional Formula 1,000 ml 30ML/HR GT 06/04/25 18:15 06/05/25 17:42 1,000 ML Examination Young female patient lying in bed, intubated and mechanically ventilated. Patient has left IJ Frankie catheter for hemodialysis General: Pallor, mucosa moist, afebrile Cardiovascular: Regular S1 and S2. No murmurs, gallops or rubs. No JVD elevation. 2+ Pitting pedal edema bilateral Respiratory: Bilateral equal air entry, intubated and mechanically ventilated Abdomen: Soft, nontender, nondistended, normoactive bowel sounds, no rebound tenderness, no organomegaly, no masses Genitourinary: Alves seen draining dark urine Musculoskeletal: Lower extremity bruising seen more on the left lower extremity, left lower extremity soft laboratory and microbiology Laboratory Tests 06/07/25 03:00 Test 06/07/25 03:00 Range/Units Serum Glucose 84 74-106 mg/dL Microbiology Date/Time Source Procedure Growth Status 06/04/25 03:30 Nose MRSA Screen - Final Complete 06/02/25 20:23 Voided Urine Urine Culture - Final Complete 06/02/25 20:12 Blood Blood Culture - Preliminary NO GROWTH AFTER 72 HOURS OF INCUBATION. Resulted Labs and/or images reviewed: Labs reviewed by me, Image(s) reviewed by me Problem List/Assessment/Plan Problem List/Assessment/Plan Severe rhabdomyolysis ? Septic shock requiring IV pressor support ALOC ? Toxic status post intubation and mechanical ventilator Acute kidney injury likely prerenal versus ATN secondary to above-baseline unknown Transaminitis secondary to above NSTEMI Hypocalcemia Hyperkalemia Anion gap metabolic acidosis Lactic acidosis Anemia likely normocytic Vitamin-D deficiency Polysubstance use dependence Chest x-ray: Question a small/nodular opacity in the left midlung. Lungs are otherwise grossly clear. No pneumothorax. Received 5 L IV normal saline bolus Prelim blood culture negative Plan: Given the anuria, patient underwent hemodialysis 06/04, 06/05, 06/06 undergoing hemodialysis 06/07 - goal is to remove >2L each session. We will monitor urine output. DC IV fluids at this time. Closely monitor lower extremity and soft tissue for swelling, rigidity and tenderness given likelihood of compartment syndrome after fluid resuscitation CK levels trending down Uric acid decreased to 9.1 LDH greater than 4500 Cardiology consultation appreciated IV antibiotic per primary team Strict I&Os We will continue to follow up Off IV pressors Left IJ Frankie placed 06/04 Plan discussed with patient's father, nurse at bedside in which all questions have been answered Case discussed with Dr. Canales Plan discussed with: Patient Dietary Evaluation Review Comments: 1. TF Nepro Carb Steady @ 40ml/hr. Start @ 20ml/hr, increase 10ml/hr Q4H until goal is reached. TF at goal volume provides 100% energy & protein needs - 1728 kcal, 78gm protein, 698 ml free water 2. Water flush 260ml Q6H if allowed, adjust PRN 3. Monitor TF tolerance, lab values, wt trends, I/O Expected Outcomes/Goals: To meet >75% estimated needs Lab values to improve Fu 2-3 days KRIS SHER RESIDENT Jun 07, 2025 10:11
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
--- NOTE | 2025-06-07 20:17 | DVHPN2 ---
Progress Note - Dictate Date Seen: Jun 07, 2025 Medical Necessity Reason Pt with a Central, PICC or Fol: Yes The following are medically ne: Central Line, Alves Catheter Subjective Ms. Ramey is a 34 years old female with a history of anxiety, wax and possibly fentanyl abuse, she was admitted to the [facility] on 06/02/2025 with a chief company of altered mental status. I have seen and examined the patient, I have talked to her nurse, she is intubated, sedated, but is awake, she does not follow verbal commands Hemodialysis today She is to be transferred to a [facility] today Fentanyl 150 mcg/hour, Versed 13mg/hour UDS, 06/02/2025: Cannabinoids, fentanyl Plasma alcohol, 05/23/25: 3 Urinalysis, 06/02/2025: WBC:, urine leukocyte esterase: Negative CBC, 06/03/2025: Metabolic acidosis, 06/04/2025: Metabolic acidosis, 06/05/2025: Compensated metabolic acidosis WBC/HB/PLT/MCV, 06/02/2025: 16.3/10.6/324/103.4, 06/03/2025: 8/10.7/208/94.4, Na, 06/02/2025: 135, 139, 06/03/25: 151 K, 06/02/2025: 7.5, 7.6, 06/03/25: 406 HCO3, 06/02/2025: <10, 12, 06/03/2025: 19 BUN/CR, 06/02/2025: 18/2.92 06/05/2025: 35/4.61 GFR, 06/02/2025: 21, 06/04/2025: 13, : 12 Ca, 06/02/2025: 6 ft two, six, 06/03/2025: 5.2 Lactic acid, 06/02/2025: 11, 9.1, 06/03/2025: 5.1, 2.6 TBI/AST/ALT/AP, 06/02/2025: 0.6/>6000?4005/110, 06/05/2025: 2.04/5186/2155/96 CK, 06/03/2025:>70545, 06/05/2025: .75338 Troponin I high sensitivity, 06/02/2025: 2381, 2267, 06/03/25: 4005 EEG, 06/04/2025: inadequate, likely abnormal EEG Chest x-ray, 06/02/2025: Endotracheal and enteric tubes are in satisfactory position. Question a small/nodular opacity in the left midlung. Lungs are otherwise grossly clear. No pneumothorax. Partially visualized gaseous distention of the stomach. CT head, 06/02/2025: No acute intracranial abnormality. vital signs Vital Sign Date Time Temp Pulse Resp B/P (MAP) Pulse Ox O2 Delivery O2 Flow Rate FiO2 06/07/25 17:15 83 32 111/67 (82) 100 06/07/25 16:13 30 06/07/25 16:00 99.1 99.1 06/07/25 16:00 Mechanical Ventilator+ Total Intake and Output 06/06/25 06/06/25 06/07/25 15:00 23:00 07:00 Intake Total 331.7 ml 602 ml 494.0 ml Output Total 2020 ml 25 ml Balance 331.7 ml -1418 ml 469.0 ml medications Current Medications Medications Dose Ordered Sig/Renny Route Start Time Stop Time Status Last Admin Dose Admin Dextrose 50 ml UD PRN IV 06/03/25 00:00 Cancel objective The patient is well-nourished and well-developed with no distress. The patient is intubated MENTAL STATUS: Subjective CRANIAL NERVES: Pupils are equal, round and reactive.There are a lipid conjugated eye movement. No signs of facial weakness. There are gagging or coughing reflexes, she moves the head SENSATION: Responses to pain and light touch stimuli. MOTOR: Normal tone in the upper and lower extremity. Normal muscle bulk. No fasciculations. Does not with the extremities REFLEXES: Deep tendon reflexes are symmetrical. No pathological reflexes. CEREBELLAR/COORDINATION: Deferred GAIT/STATION: deferred. laboratory and microbiology Laboratory Tests 06/07/25 03:00 Test 06/07/25 03:00 Range/Units Serum Glucose 84 74-106 mg/dL Problem List Coma Fentanyl overdosing/toxic encephalopathy Hypoxic encephalopathy Metabolic encephalopathy Acute respiratory failure secondary to fentanyl overdosing Hypoglycemia Rhabdomyolysis Elevated liver function tests Secondary to rhabdomyolysis Rule out shocked liver Substance abuse Sepsis Kidney failure Elevated liver function tests Assessment/Plan Monitoring Supportive treatment ICU care Follow-up lab Consider MRI brain or follow-up CT head Stabilize vitals/pressor drips Recreational support/vent management Oxygen Folic acid supplementation Thiamine supplementation IV antibiotics Hemodialysis Nephrology on case More recommendation per clinical course This medical document was created using an electronic medical record system with [employer] Prognosis guarded Dietary Evaluation Review Comments: 1. TF Nepro Carb Steady @ 40ml/hr. Start @ 20ml/hr, increase 10ml/hr Q4H until goal is reached. TF at goal volume provides 100% energy & protein needs - 1728 kcal, 78gm protein, 698 ml free water 2. Water flush 260ml Q6H if allowed, adjust PRN 3. Monitor TF tolerance, lab values, wt trends, I/O Expected Outcomes/Goals: To meet >75% estimated needs Lab values to improve Fu 2-3 days Plan discussed with: Other GABRIELLE ISIDRO MD Jun 07, 2025 20:17
== END 2025-06-07 18:26 | disposition short-term general hospital (02) | DRG 720 ==
LOC: ER 19:50 → EDBD 19:50 → EEVIPCON 06-03 04:55 → OVERFLOW 06-03 04:55 → ICU WEST 06-04 03:26
PROVIDERS: ADMIT Internal Medicine Pulmonary Disease; ATTEND Emergency Medicine
PROC: 0BH17EZ Insertion of Endotracheal Airway into Trachea, Via Natural or Artificial Opening (ICD-10-PCS; principal; 2025-06-03)
PROC: 5A1955Z Respiratory Ventilation, Greater than 96 Consecutive Hours (ICD-10-PCS; 2025-06-03)
PROC: 06HY33Z Insertion of Infusion Device into Lower Vein, Percutaneous Approach (ICD-10-PCS; 2025-06-03)
PROC: 04HY32Z Insertion of Monitoring Device into Lower Artery, Percutaneous Approach (ICD-10-PCS; 2025-06-03)
PROC: 02HV33Z Insertion of Infusion Device into Superior Vena Cava, Percutaneous Approach (ICD-10-PCS; 2025-06-04)
PROC: B548ZZA Ultrasonography of Superior Vena Cava, Guidance (ICD-10-PCS; 2025-06-04)
PROC: 5A1D70Z Performance of Urinary Filtration, Intermittent, Less than 6 Hours Per Day (ICD-10-PCS; 2025-06-04)
PROC: 5A1D70Z Performance of Urinary Filtration, Intermittent, Less than 6 Hours Per Day (ICD-10-PCS; 2025-06-05)
PROC: 5A1D70Z Performance of Urinary Filtration, Intermittent, Less than 6 Hours Per Day (ICD-10-PCS; 2025-06-06)
DX: A41.9 Sepsis, unspecified organism (principal); K72.01 Acute and subacute hepatic failure with coma; J96.01 Acute respiratory failure with hypoxia; J69.0 Pneumonitis due to inhalation of food and vomit; R65.21 Severe sepsis with septic shock; G92.8 Other toxic encephalopathy; E87.20 Acidosis, unspecified; M62.82 Rhabdomyolysis; G93.1 Anoxic brain damage, not elsewhere classified; I21.A1 Myocardial infarction type 2; Z20.822 Contact with and (suspected) exposure to COVID-19; N17.9 Acute kidney failure, unspecified; D64.9 Anemia, unspecified; F10.10 Alcohol abuse, uncomplicated; F19.10 Other psychoactive substance abuse, uncomplicated; T40.411A Poisoning by fentanyl or fentanyl analogs, accidental (unintentional), initial encounter; E16.2 Hypoglycemia, unspecified; F41.9 Anxiety disorder, unspecified; E87.5 Hyperkalemia; E55.9 Vitamin D deficiency, unspecified; E87.6 Hypokalemia; Y92.89 Other specified places as the place of occurrence of the external cause
CPT/HCPCS: 31500; 36415; 36556; 36600; 36620; 70450; 71045; 76775; 80048; 80053; 80061; 80202; 80307; 80320; 81001; 81025; 82306; 82550; 82570; 82805; 82962; 83036; 83605; 83615; 83690; 83735; 83874; 83880; 83930; 83935; 83970; 84100; 84132; 84156; 84300; 84484; 84550; 85007; 85025; 85027; 85610; 87040; 87070; 87077; 87081; 87086; 87186; 87205; 87340; 87426; 87804; 90935; 93005; 93017; 93306; 94002; 94003; 94640; 96365; 96375; 99291; 99292; G0378; J1642; J1815; J2470; J2543; J2704; J7060; P9047